=== PATIENT | male | born 1985 | race Caucasian/White ===

== ENCOUNTER 2023-12-19 08:10 | Inpatient (IN) ==
[2023-12-19] MEDS: SODIUM CHLORIDE 0.9% 1,000 ML IV ONE (08:46)
[2023-12-19] MEDS: LORazepam 1 MG/1 ML SYR ED Inj Use IV STA (08:51)
--- OUTSIDE RECORDS SUMMARY | 2023-12-19 08:51 | External Medical Summary | Summary of Care ---
Author Name Unknown Organization [facility] Address [address] [place] [address] Phone [phone] Care Team Providers Care Site Interpreter Name Role Phone Chadd Ulrich MD Primary Care Provider +1- [phone] Reason for Visit * Reason Comments Follow Up Encounter Details Date Type Department Care Team (Late st Contact Info) Description 10/04/2023 12:15 PM EST Office Visit Otolaryngology [facility] [address] [place] [address] Leslie Alcocer MD [address] [place] [address] Nasal polyps* Allergies Active Allergy Reactions Criticality Noted Date Comments Other Allergy (See Comments) 021 pollen documented as of this encounter (statuses as of 10/04/2023) Medications Medication Sig Dispensed Refills Start Date End Date Status Spacer/Aero-Holding Chambers Device Use with inhaler. 1 Each 3 2 Active Albuterol Sulfate HFA 108 (90 Base) MCG/ACT Inhalation Aerosol Solution Inhale 2 Puffs by mouth in the morning and 2 Puffs at noon and 2 Puffs in the evening and 2 Puffs before bedtime. 54 g 1 2 Active Montelukast Sodium 10 MG Oral Tablet (Singulair) Take 1 Tablet by mouth in the morning. 90 Tablet 3 3 Active Fluticasone Furoate-Vilanterol 200-25 MCG/ACT Inhalation Aerosol Powder Breath Activated (BREO ellipta) Inhale 1 Puff by mouth in the morning. 180 Each 3 3 Active Levocetirizine Dihydrochloride 5 MG Oral Tablet Take 1 Tablet by mouth every evening. 90 Tablet 3 3 Active Mometasone Furoate 50 MCG/ACT Nasal Suspension Administer 2 Sprays into each nostril in the morning. 17 g 6 3 Active Budesonide 0.5 MG/2ML Inhalation Suspension (Pulmicort) Inhale 0.5 mg via nebulizer in the morning and 0.5 mg before bedtime. As directed. 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 09/08/2022 07/19/2023 Chronic frontal sinusitis 09/08/2022 Acute sinusitis 04/14/2022 07/27/2023 COPD (chronic obstructive pu lmonary disease) with chronic bronchitis 09/03/2020 09/08/2022 Other chronic sinusitis 11/12/201906/21 Hypertrophy of both inferior nasal turbinates 11/12/19 20 07/27/2023 Deviated nasal septum 11/12/20192022 Anosmia 11/12/2019 07/27/2023 Asthma in remission 11/16/2017 07/27/20 23 Chronic pharyngitis 05/22/2003 11/16/19 18 Chronic lymphadenitis 05/22/20032022 SWELLING, MASS, OR LUMP IN HEAD AND NECK 05/22/2003 11/16/2017 Allergic rhinitis 05/22/2003 07/27/2023 Asthma with severity to be determined 11/16/2017 Overview: ICD-10 update of inactive term Other acne 11/16/2017 Accidental poisoning by [place]-hand tobacco smoke 07/27/2023 Overview: ICD-10 update of inactive term documented as of this encounter (statuses as of 10/04/2023) Immunizations Name Administration Dates Next Due Seasonal Influenza, PF, 6 M & above, IM , (FluLaval or Fluzone) 06/18/2022,07/02/2021 Seasonal Influenza, Quadrivalent, No Preserve, I M 06/13/2020,06/13/2019 Seasonal Influenza, Split, IIV3, With Preserve, Inj 06/19/2016,07/09/2010 TDAP (age 10 and older)(Boostrix) 09/29/2022 TDAP (age 11 and older)(Adacel) 09/05/2008 documented as of this encounter Social History Tobacco Use Types Packs/Day Years Used Date Smoking Tobacco: Former Cigarettes 0.3 10 Smokeless Tobacco: Never Tobacco Cessation:Counseling Given: Not Answered Alcohol Use Standard Drinks/Week Comments Yes 0 (1 standard drink = 0.6 oz pur e alcohol) Weekend-- occasional PHQ-2 Answer Date Recorded PHQ-2 Score -1 04/19/2019 Sex and Gender Information Value Date Recorded Sex Assigned at Not on file Gender Identity Not on file Sexual Orientation Not on file Job Start Date Occupation Industry Not on file Not on file Not on file documented as of this encounter Last Filed Vital Signs Vital Sign Reading Time Taken Comments Blood Pressure - - Pulse - - Temperature 36.9 C (98.5 F) 10/04/2023 12:[address] Respiratory Rate - - Oxygen Saturation - - Inhaled Oxygen Concentration - - Weight 79.8 kg (176 lb) 10/04/2023 12:22 PM EST Height 182.9 cm (6') 10/04/2023 12:22 PM EST Body Mass Index 23.87 10/04/2023 12:22 PM EST documented in this encounter Progress Notes * Leslie Alcocer MD - 10/04/2023 12:40 PM EST PATIENT: Fransico Quinn : 1985 DATE OF SERVICE: 11/23/2022 History of Present Illness The 37 year old male is seen at the request of Chadd Ulrich MD for evaluation of chronic rhinosinusitis with nasal polyps. Here for 2nd opinion regarding recurrent nasal polyps. Patient is status post endoscopic sinus surgery with Dr. Alcocer in November of 2020. This procedure included: .STEREOTACTIC CRANIAL EXTRADURAL NAVIGATION NASAL SINUS ENDOSCOPY WITH ETHMOIDECTOMY TOTAL SINUSOTOMY RADICAL ORTIZ RAMON NASAL SINUS ENDOSCOPY ETHMOIDECTOMY TOTAL WITH FRONTAL SINUS EXPLORATION/TISSUE REMOVAL FRACTURE OF NASAL TURBINATES THERAPEUTIC Patient denies incision of the upper gingiva; therefore, suspect Ortiz Ramon procedure above was listed in error. Patient has a prior history of asthma in childhood. Patient as noted recurrent sinonasal symptoms and has been treated with topical mometasone irrigations. Dr. Alcocer discussed possible Dupixent therapy versus 2nd opinion regarding revision sinus surgery. Patient reports nasal breathing and sense of smell have improved since surgery but notes some left sided obstruction more recently. Initially, presenting back in 2018 with worsening sinus infections and left frontal sinus headaches which had been treated with antibiotics and prednisone. He continues to experience recurrent sinus infections which he feels began with chest congestion followed by a sinus infection a week later. Last sinus infection was in Aug. Had a frontal headache last week. He is currently taking xyzal, Breo, and singulair. Had RAST panel - + class 1 dust mite. 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 There was near complete opacification of the bilateral maxillary sinuses and partial opacification of the left frontal sinus at that time. Patient Active Problem List Diagnosis Code Mild persistent asthma without complication J45.30 Past Medical History: Diagnosis Date ASTHMA W-O STATUS ASTHM Mild persistent asthma without complication 07/27/2023 SECOND-HAND TOBACCO SMOKE Past Surgical History: Procedure Laterality Date CIRCUMCISION W/CLAMP,DORSAL BLOCK, NASAL ENDOSCOPY,TOTAL ETHMOIDECTOMY Bilateral 11/24/2020 NASAL SINUS ENDOSCOPY WITH ETHMOIDECTOMY TOTAL performed by Leslie Alcocer MD at OR [facility] NASAL/SINUS ENDO W/FRONTAL SINUS DILATION Bilateral 11/24/2020 NASAL/SINUS ENDOSCOPY SURGICAL, W/FRONTAL SINUS DILATION performed by Leslie Alcocer MD at OR [facility] NASAL/SINUS ENDOSCOPY TOTAL W/FRONT SINUS EXPLORE/TISSUE REMOVAL Bilateral 11/24/2020 NASAL SINUS ENDOSCOPY ETHMOIDECTOMY TOTAL WITH FRONTAL SINUS EXPLORATION/TISSUE REMOVAL performed by Leslie Alcocer MD at OR [facility] STEREOTACTIC CRANIAL EXTRADURAL NAVIGATION N/A 11/24/2020 STEREOTACTIC CRANIAL EXTRADURAL NAVIGATION performed by Leslie Alcocer MD at OR [facility] THERAPEUTIC FRACTURE OF NOSE Bilateral 11/24/2020 FRACTURE OF NASAL TURBINATES THERAPEUTIC performed by Leslie Alcocer MD at OR [facility] Current Outpatient Medications Medication Sig Dispense Refill Spacer/Aero-Holding Chambers Device Use with inhaler. 1 Each 3 Albuterol Sulfate HFA 108 (90 Base) MCG/ACT Inhalation Aerosol Solution Inhale 2 Puffs by mouth in the morning and 2 Puffs at noon and 2 Puffs in the evening and 2 Puffs before bedtime. 54 g 1 Montelukast Sodium 10 MG Oral Tablet (Singulair) Take 1 Tablet by mouth in the morning. 90 Tablet 3 Fluticasone Furoate-Vilanterol 200-25 MCG/ACT Inhalation Aerosol Powder Breath Activated (BREO ellipta) Inhale 1 Puff by mouth in the morning. 180 Each 3 Levocetirizine Dihydrochloride 5 MG Oral Tablet Take 1 Tablet by mouth every evening. 90 Tablet 3 Mometasone Furoate 50 MCG/ACT Nasal Suspension Administer 2 Sprays into each nostril in the morning. 17 g 6 Budesonide 0.5 MG/2ML Inhalation Suspension (Pulmicort) Inhale 0.5 mg via nebulizer in the morning and 0.5 mg before bedtime. As directed. 120 mL 12 No current facility-administered medications for this visit. Family History Problem Relation Age of Onset No Past Hx None Social History Tobacco Use Smoking status: Former Packs/day: 0.25 Years: 10.00 Additional pack years: 0.00 Total pack years: 2.50 Types: Cigarettes Smokeless tobacco: Never Substance Use Topics Alcohol use: Yes Comment: Weekend-- occasional Vaping/E-Cigarette Use Vaping/E-Cigarette Substances Vaping/E-Cigarette Devices Review of Systems Negative for constitutional, eyes, cardiac, pulmonary, hepatic, renal, digestive, hematologic, epileptic, syncopal, musculo-skeletal, mental health, integumentary, hypertensive, lipid, arthritic, diabetic, thyroid or neurologic disorders (except as listed in the PMH and Problem List). Physical Examination: Vital Signs: Filed Vitals: 10/04/23 1222 Temp: 36.9 C (98.5 F) TempSrc: Tympanic Weight: 79.8 kg (176 lb) Height: 1.829 m (6') General: This is a healthy appearing male who appears his stated age. The patient is alert and oriented x 3 and is appropriately verbally conversant without hoarseness. Head/Face: The face was inspected and no cutaneous masses or lesions were visualized. There was no erythema or edema noted. Facial movement was symmetric without weakness. No skin lesions were detected. Eyes: Extra-ocular muscle function was intact. No nystagmus was observed. Pupils were equal. Nose: Examination of the nose revealed septum is non-obstructing. The turbinates are normal in appearance. No evidence of mucopurulence or nasal polyps appreciated on the right. The previous maxillary antrostomy and ethmoidectomy are patent. On the left, the maxillary antrostomy is patent and free of mucopurulence or polyps. Last visit: Polyps present within the left superior middle meatus and frontal recess area. No obvious mucopurulence seen. Procedure: In order to better assess the nasal chambers and paranasal sinuses, endoscopy was performed. The nose was decongested with topical oxymetazoline 0.05% spray and anesthetized with topical Lidocaine 4%spray. A rigid 30 degree scope was used to examine each side of the nose. See nasal exam for findings noted. Patient tolerated procedure well. No signs of polyps today. Slightly inflamed but overall looks great. Impression and Plan: ICD-10-CM 1. Nasal polyps J33.9 Patient is doing great on his current regimen. He knows to call if he wants to consider Dupixent. P.r.n. return Approximately 25 minutes was spent with the patient reviewing his previous sinonasal history and current symptoms, performance of fiberoptic nasal exam, and discussion of treatment options. His questions were answered to his satisfaction. Leslie Alcocer MD [facility] - [facility] [place], [place] 10/04/2023 12:43 PM documented in this encounter Nursing Notes * Kayli Moreau LPN - 10/04/2023 12:23 PM EST Patient presents today for follow up. States he uses budesonide in the morning with saline irrigation. Will then use mometasone before work. Will use flonase if needed due to congesion but is very seldom. He was doing good until July. Would like to get update of growths of polyps. documented in this encounter Plan of Treatment Upcoming Encounters Date Type Department Care Team (Late st Contact Info) Description 10/25/2023 12:30 PM EST Office Visit Orthopaedics [facility] [address] [place] [address] Steffanie Canchola MD [address] [place] [address] 01/18/2024 11:40 AM EDT Office Visit Family Practice [facility] [address] [place] [address] Lorena Beckett CRNP [address] [place] [address] Health Maintenance Due Date Last Done Comments Hepatitis B (1 of 3 - 3-dose series) 1985 Pneumococcal Vaccine: Pediatrics (0 to 5 Years) and At-Risk Patients (6 to 64 Years) (1 - PCV) 1991 HIV Screening 2000 Hepatitis C Screening 2003 Depression Screening 04/19/2020 04/19/2019 COVID-19 Vaccine (2 - 2022- season) 2023 12/12/2020 Influenza Vaccine (FLU shot) (#1) 2023 06/18/2022, 07/02/2021, 06/13/2020, Additional history exists DTaP,Tdap,and Td Vaccines (7 - Td or Tdap) 09/29/2032 09/29/2022, 09/05/2008, 05/31/1988, Additional history exists GARDASIL-HPV IMMUNIZATION SERIES Aged Out No longer eligible based on patient's age to complete this topic MENINGOCOCCAL (MENACTRA/MENVEO) Aged Out No longer eligible based on patient's age to complete this topic documented as of this encounter Medical Devices Implanted Type Area Refractory Technician Device Identifier Shelf Expiration Date Model / Serial / Lot Propell Sinus Implant Implanted:Qty: 2 on 11/24/2020 by Leslie Alcocer MD at OR [facility] Nose INTERSECT ENT 07/22/2022 [id number] / / [id number] documented as of this encounter Visit Diagnoses Diagnosis Nasal polyps- Primary Unspecified nasal polyp documented in this encounter Care Teams Site Interpreter Relationship Specialty Start Date End Date Chadd Ulrich MD [address] [place] [address] PCP - General 11/27/02 documented as of this encounter
--- OUTSIDE RECORDS SUMMARY | 2023-12-19 08:51 | External Medical Summary | Summary of Care ---
Author Name Unknown Organization [facility] Address [address] [facility] [place] [address] Phone [phone] Care Team Providers Care Director Of Annual Giving Name Role Phone Chadd Ulrich MD Primary Care Provider +1- [phone] Encounter Details Date Type Department Care Team (Late st Contact Info) Description 09/26/2023 Patient Reported Data Patient Survey Ortho [facility] Allergies Active Allergy Reactions Criticality Noted Date Comments Other Allergy (See Comments) 021 pollen documented as of this encounter (statuses as of 09/26/2023) Medications Medication Sig Dispensed Refills Start Date End Date Status Spacer/Aero-Holding Chambers Device Use with inhaler. 1 Each 3 09/08/2022 Active Albuterol Sulfate HFA 108 (90 Base) MCG/ACT Inhalation Aerosol Solution Inhale 2 Puffs by mouth in the morning and 2 Puffs at noon and 2 Puffs in the evening and 2 Puffs before bedtime. 54 g 1 09/08/2022 Active Montelukast Sodium 10 MG Oral Tablet (Singulair) Take 1 Tablet by mouth in the morning. 90 Tablet 3 01/11/2023 Active Fluticasone Furoate-Vilanterol 200-25 MCG/ACT Inhalation Aerosol Powder Breath Activated (BREO ellipta) Inhale 1 Puff by mouth in the morning. 180 Each 3 01/11/2023 Active Levocetirizine Dihydrochloride 5 MG Oral Tablet Take 1 Tablet by mouth every evening. 90 Tablet 3 01/11/2023 Active Mometasone Furoate 50 MCG/ACT Nasal Suspension Administer 2 Sprays into each nostril in the morning. 17 g 6 07/29/2023 Active Budesonide 0.5 MG/2ML Inhalation Suspension (Pulmicort) Inhale 0.5 mg via nebulizer in the morning and 0.5 mg before bedtime. As directed. 120 mL 12 07/29/2023 Active metroNIDAZOLE 1 % External Gel (Metrogel) Apply topically to affected area 2 times a day. To affected area for 8 weeks 60 g 1 07/29/2023 Active methylPREDNISolone 4 MG Oral Tablet Therapy Pack (Medrol Dosepack) follow package directions 21 Tablet 0 08/05/2023 Active Additional Information Patient not taking.Reported on 09/26/2023 documented as of this encounter (statuses as of 09/26/2023) Active Problems Problem Noted Date Diagnosed Date Mild persistent asthma without complication 04/2023 documented as of this encounter (statuses as of 09/26/2023) Resolved Problems Problem Noted Date Diagnosed Date [...] as of this encounter (statuses as of 09/26/2023) Immunizations Name Administration Dates Next Due Seasonal [...] Former Cigarettes 0.3 10 Smokeless Tobacco: Never Alcohol Use Standard Drinks/Week Comments Yes 0 [...] on file documented as of this encounter Plan of Treatment Upcoming Encounters Date Type Department Care Team (Late st Contact Info) Description 09/27/2023 3:30 PM EST Office Visit Orthopaedics [facility] [address] [address] Steffanie Canchola MD [address] [place] [address] 10/04/2023 12:15 PM EST Office Visit Otolaryngology [facility] [address] [address] Leslie Alcocer MD [address] [place] [address] 01/18/2024 11:40 AM EDT Office Visit Family Practice [facility] [address] [place] [address] Sujit LorenaFINN Chowdhury [address] [place] [address] Health Maintenance Due Date Last Done Comments Hepatitis B (1 of 3 - 3-dose series) 1985 Pneumococcal Vaccine: Pediatrics (0 to 5 Years) and At-Risk Patients (6 to 64 Years) (1 - PCV) 1991 HIV Screening 2000 Hepatitis C Screening 2003 Depression Screening 04/19/2020 04/19/2019 COVID-19 Vaccine (2 - season) 2023 12/12/2020 Influenza Vaccine (FLU shot) [...] this encounter Medical Devices Implanted Type Area Sales Broker Device Identifier Shelf Expiration Date Model / Serial / Lot Propell Sinus Implant Implanted:Qty: 2 on 11/24/2020 by Leslie Alcocer MD at OR [facility] Nose INTERSECT ENT 07/22/2022 [id number] / / [id number] documented as of this encounter Care Teams Director Of Annual Giving Relationship Specialty Start Date End Date Chadd Ulrich MD [address] [facility] [place] [address] PCP - General 11/27/02 documented as of this encounter
--- OUTSIDE RECORDS SUMMARY | 2023-12-19 08:51 | External Medical Summary | Summary of Care ---
Author Name Unknown Organization [facility] Address [address] [place] [address] Phone [phone] Care Team Providers Care Cryptologic Support Specialist Name Role Phone Chadd Ulrich MD Primary Care Provider +1- [phone] Encounter Details Date Type Department Care Team [...] 09/27/2023 3:30 PM EST Office Visit Orthopaedics [facility] [address] [address] Steffanie Canchola MD [address] [place] [address] 10/04/2023 12:15 PM EST Office Visit Otolaryngology [facility] [address] [address] Leslie Alcocer MD [address] [place] [address] 01/18/2024 11:40 AM EDT Office Visit Family Practice [facility] [address] [place] [address] Sujit LorenaFINN Chowdhury [address] [place] [address] Health Maintenance Due Date Last Done Comments [...] this encounter Medical Devices Implanted Type Area Electronic Warfare Technical Device Identifier Shelf Expiration Date Model / Serial / Lot Propell Sinus Implant Implanted:Qty: 2 on 11/24/2020 by Leslie Alcocer MD at OR [facility] Nose INTERSECT ENT 07/22/2022 [id number] / / [id number] documented as of this encounter Care Teams Cryptologic Support Specialist Relationship Specialty Start Date End Date Chadd Ulrich MD [address] [facility] [place] [address] PCP - General 11/27/02 documented as of this encounter
--- OUTSIDE RECORDS SUMMARY | 2023-12-19 08:51 | External Medical Summary | Summary of Care ---
Author Name Unknown Organization [facility] Address [address] [place] [address] Phone [phone] Care Team Providers Care Agent Telegrapher Name Role Phone Chadd Ulrich MD Primary Care Provider +1- [phone] Reason for Visit * Reason Comments NEW PATIENT Left ring finger * Evaluate & Treat - Unlimited Visits (Within 3 days (urgent)) - Authorized Specialty Diagnoses / Procedures Referred By Bryson t Referred To Contact Orthopaedic Surgery / Orthopedics Diagnoses Injury of finger of left hand, initial encounter Fina March CRNP [address] [place] [address] Referral ID Status Reason Start Date Expiration Date Visits Requested Visits Authorized [id number] Authorized Specialty Services Required 09/26/[phone] Encounter Details Date Type Department Care Team (Late st Contact Info) Description 09/27/2023 3:30 PM EST Office Visit Orthopaedics [facility] [address] [facility] [place] [address] Steffanie Canchola MD [address] [place] [address] Closed fracture of tuft of distal phalanx of finger* Allergies Active Allergy Reactions Criticality Noted Date Comments Other Allergy (See Comments) 021 pollen documented as of this encounter (statuses as of 09/27/2023) Medications Medication Sig Dispensed Refills Start Date [...] as of this encounter (statuses as of 09/27/2023) Active Problems Problem Noted Date Diagnosed Date Mild persistent asthma without complication 04/2023 documented as of this encounter (statuses as of 09/27/2023) Resolved Problems Problem Noted Date Diagnosed Date Resolved Date Perioral dermatitis 07/19/2023 07/27/20 Mild persistent asthma with exacerbation 09/08/2022 07/27/2023 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 09/08/2022 07/19/2023 Chronic frontal sinusitis 09/08/2022 Acute sinusitis 04/14/2022 07/27/2023 COPD (chronic obstructive pu lmonary disease) with chronic bronchitis 09/03/2020 09/08/2022 Other chronic sinusitis 11/12/2019 10/09/2022 Hypertrophy of both inferior nasal turbinates 11/12/19 [...] as of this encounter (statuses as of 09/27/2023) Immunizations Name Administration Dates Next Due Seasonal [...] on file documented as of this encounter Progress Notes * Steffanie Canchola MD - 09/27/2023 3:30 PM EST History: Chief Complaint Patient presents with NEW PATIENT Left ring finger Nursing Notes: Jez Dana, MED ASSIST 09/27/23 1407 Signed Pt presents today for left ring finger injury, DOI 09/25/23. Pt states he was hooking up a snow plow and the tip of his finger got smashed. Pt tried going to urgent care, but could not get in and wasseen at [facility] where they did Xrays. Last night his finger was getting discolored, so he put ice on it and was bending his fingers. Patient is a 37 year old right handed male ho presents for consultation to [facility] for left hand/finger pain. Consult requested by FINN Grier. Fransico Maria De Jesus Quinn is here unaccompanied Patient reports that left 4th finger pain started 2 days ago. Snow plow fell onto the tip of his finger when he was trying to attach and release it. He went to urgent care on the day of injury but the wait was too long and he was told to go to the ER. He was unable to go to the ER due to commitments with his kids, so was seen in the family doctor's office the next day. This office note was reviewed. An x-ray was ordered that confirmed a fracture and he was provided an urgent referral to orthopedics. Last tetanus was September 2022. Review of systems: All others negative except those noted above in HPI. Past Medical History: Diagnosis Date ASTHMA W-O STATUS ASTHM Mild persistent asthma without complication 07/27/2023 SECOND-HAND TOBACCO SMOKE Family History Problem Relation Age of Onset No Past Hx None Social History Socioeconomic History Marital status: Spouse name: Not on file Number of children: Not on file Years of education: Not on file Highest education level: Not on file Occupational History Not on file Tobacco Use Smoking status: Former Packs/day: 0.25 Years: 10.00 Additional pack years: 0.00 Total pack years: 2.50 Types: Cigarettes Smokeless tobacco: Never Substance and Sexual Activity Alcohol use: Yes Comment: Weekend-- occasional Drug use: No Sexual activity: Not on file Other Topics Concern Service Not Asked Blood Transfusions Not Asked Caffeine Concern Not Asked Occupational Exposure Not Asked Hobby Hazards Not Asked Sleep Concern Not Asked Stress Concern Not Asked Weight Concern Not Asked Special Diet Not Asked Back Care Not Asked Exercise Not Asked Bike Helmet Not Asked Seat Belt Yes Self-Exams Not Asked Social History Narrative 10th grade, doing well Planning on college Social Determinants of Health Financial Resource Strain: Not on file Food Insecurity: Not on file Transportation Needs: Not on file Physical Activity: Not on file Stress: Not on file Social Connections: Not on file Intimate Partner Violence: Not on file Housing Stability: Not on file Past Surgical History: Procedure Laterality Date CIRCUMCISION W/CLAMP,DORSAL BLOCK, NASAL ENDOSCOPY,TOTAL ETHMOIDECTOMY Bilateral 11/24/2020 NASAL SINUS ENDOSCOPY WITH ETHMOIDECTOMY TOTAL performed by Leslie Alcocer MD at OR [facility] NASAL/SINUS ENDO W/FRONTAL SINUS DILATION Bilateral 11/24/2020 NASAL/SINUS ENDOSCOPY SURGICAL, W/FRONTAL SINUS DILATION performed by Leslie Alcocer MD at OR [facility] NASAL/SINUS ENDOSCOPY TOTAL W/FRONT SINUS EXPLORE/TISSUE REMOVAL Bilateral 11/24/2020 NASAL SINUS ENDOSCOPY ETHMOIDECTOMY TOTAL WITH FRONTAL SINUS EXPLORATION/TISSUE REMOVAL performed by Leslie Alcocer MD at OR [facility] STEREOTACTIC CRANIAL EXTRADURAL NAVIGATION N/A 11/24/2020 STEREOTACTIC CRANIAL EXTRADURAL NAVIGATION performed by Leslie Alcocer MD at OR [facility] THERAPEUTIC FRACTURE OF NOSE Bilateral 11/24/2020 FRACTURE OF NASAL TURBINATES THERAPEUTIC performed by Leslie Alcocer MD at OR [facility] Physical Exam There were no vitals filed for this visit. Estimated body mass index is 23.87 kg/m as calculated from the following: Height as of 07/27/23: 1.829 m (6'). Weight as of 09/26/23: 79.8 kg (176 lb). General: generally well-nourished and in no acute distress HEENT: normocephalic, atraumatic, sclera anicteric. Psych: mood and affect normal , cooperative Card: Peripheral pulses: normal in affected extremity (s) Resp: equal chest rise, non-tachypneic, non-labored breathing Skin: no rash, normal Neuro: Coordination: normal; Sensation: normal on affected extremity (s) MSK: Hand Exam, Bilateral Inspection: Significant bruising to 4th finger tip and D IP joint. No periungual hematoma Palpation: Exquisitely tender over the 4th fingertip Range of Motion: Limited range of motion to flexion of the 4th finger DIP, but able to demonstrate active flexion. Full extension. Rotation, angulation, or crossover: yes Radiology (I have personally reviewed the following films): EXAM LT XR FINGERS 2 OR MORE VIEWS - 09/26/2023 3:38 pm HISTORY left hand distal 4th digit crushing injury yesterday COMPARISON None TECHNIQUE Three views FINDINGS Nondisplaced 4th distal phalanx tuft fracture along the ulnar aspect. Normal alignment. Joint spaces are preserved. Mild soft tissue swelling distally. IMPRESSION IMPRESSION Nondisplaced 4th distal phalanx tuft fracture. Assessment and Plan: ICD-10-CM 1. Closed fracture of tuft of distal phalanx of finger S62.639A Pleasant 37-year-old male presents today for evaluation and management of 4th distal phalanx tuft fracture sustained 2 days ago. He does have a slight abrasion above the DIP joint but no periungual hematoma. Tetanus up-to-date. Discussed tuft fractures and anticipate healing time of 4-6 weeks, immo bilization for 3-4 weeks or until the finger sensitive to impact. He was provided a Stax splint as well as a finger cage splint today. I will have him return to the office for re-evaluation in 2-3 weeks. Only need to repeat x-rays forpersistent symptoms. Return to clinic sooner if any evidence of infection including redness, warmth, drainage. Steffanie Canchola MD Primary Care Sports Medicine Orthopaedics [address] [address] documented in this encounter Nursing Notes * Dana Story, JOAQUÍN ASSIST - 09/27/2023 2:04 PM EST Pt presents today for left ring finger injury, DOI 09/25/23. Pt states he was hooking up a snow plow and the tip of his finger got smashed. Pt tried going to urgent care, but could not get in and wasseen at [facility] where they did Xrays. Last night his finger was getting discolored, so he put ice on it and was bending his fingers. documented in this encounter Plan of Treatment Upcoming Encounters Date Type Department Care Team (Late st Contact Info) Description 10/04/2023 12:15 PM EST Office Visit Otolaryngology [facility] [address] [place] [address] Leslie Alcocer MD [address] [place] [address] 10/25/2023 12:30 PM EST Office Visit Orthopaedics [facility] [address] [place] [address] Steffanie Canchola MD [address] [place] [address] 01/18/2024 11:40 AM EDT Office Visit [facility] [address] [place] [address] Lorena Beckett CRNP [address] [place] [address] Scheduled Referrals Name Type Priority Associated Diagnoses Order Schedule ORTHOPAEDICS REFERRAL OP Referral Within 3 days (urgent) Injury of finger of left hand, initial encounter Ordered: 09/26/2023 Health Maintenance Due Date Last Done Comments [...] this encounter Medical Devices Implanted Type Area Returned Materials Inspector Device Identifier Shelf Expiration Date Model / Serial / Lot Propell Sinus Implant Implanted:Qty: 2 on 11/24/2020 by Leslie Alcocer MD at OR [facility] Nose [facility] 07/22/2022 [id number] / / [id number] documented as of this encounter Visit Diagnoses Diagnosis Closed fracture of tuft of distal phalanx of finger- Primary Closed fracture of distal phalanx or phalanges of hand documented in this encounter Care Teams Agent Telegrapher Relationship Specialty Start Date End Date Chadd Ulrich MD [address] [place] [address] PCP - General 11/27/02 documented as of this encounter
--- OUTSIDE RECORDS SUMMARY | 2023-12-19 08:51 | External Medical Summary | Summary of Care ---
Author Name Unknown Organization [facility] Address [address] [place] [facility] [place] [address] Phone [phone] Care Team Providers Care Switchboard Manager Name Role Phone Chadd Ulrich MD Primary Care Provider +1- [phone] Encounter Details Date Type Department Care Team [...] 09/27/2023 3:30 PM EST Office Visit Orthopaedics [facility] [address] [place] [address] Steffanie Canchola MD [address] [place] [address] 10/04/2023 12:15 PM EST Office Visit Otolaryngology [facility] [address] [place] [address] Leslie Alcocer MD [address] [place] [address] 01/18/2024 11:40 AM EDT Office Visit Family Practice [facility] [address] [place] [address] Sujit LorenaFINN Chowdhury [address] [place] [address] Health Maintenance Due Date Last Done Comments [...] this encounter Medical Devices Implanted Type Area Patient Safety Sitter Device Identifier Shelf Expiration Date Model / Serial / Lot Propell Sinus Implant Implanted:Qty: 2 on 11/24/2020 by Leslie Alcocer MD at OR [facility] Nose INTERSECT ENT 07/22/2022 [id number] / / [id number] documented as of this encounter Care Teams Switchboard Manager Relationship Specialty Start Date End Date Chadd Ulrich MD [address] [facility] [place] [address] PCP - General 11/27/02 documented as of this encounter
--- OUTSIDE RECORDS SUMMARY | 2023-12-19 08:51 | External Medical Summary | Summary of Care ---
Author Name Unknown Organization [facility] Address [address] [place] [facility] [place] [place] [address] Phone [phone] Care Team Providers Care Research Associate Molecular Biology Name Role Phone Chadd Ulrich MD Primary Care Provider +1- [phone] Encounter Details Date Type Department Care Team (Late st Contact Info) Description 09/27/2023 Telephone Family Practice [facility] [address] [place] [address] Fina March CRNP [address] [place] [address] Allergies Active Allergy Reactions Criticality Noted Date [...] on file documented as of this encounter Miscellaneous Notes * Telephone Encounter - Sweta Chandler LPN - 09/27/2023 10:49 AM EST Called pt-- No answer, LM to return call to clinic or refer to my g message. * Telephone Encounter - Fina March CRNP - 09/27/2023 10:17 AM EST Please call Xray shows fracture Please confirm he has ortho visit. He can wait for ortho visit if today and he has no worsening pain or loss of sensation in finger but if worsening would advise ER documented in this encounter Plan of Treatment Upcoming Encounters Date Type Department Care Team (Late st Contact Info) Description 09/27/2023 3:30 PM EST Office Visit Orthopaedics [facility] [address] [place] [address] Steffanie Canchola MD [address] [place] [address] 10/04/2023 12:15 PM EST Office Visit Otolaryngology [facility] [address] [place] [address] Leslie Alcocer MD [address] [place] [address] 01/18/2024 11:40 AM EDT Office Visit Family Practice [facility] [address] [place] [address] Lorena Beckett CRNP [address] [place] [address] Health Maintenance Due Date Last Done Comments [...] this encounter Medical Devices Implanted Type Area Shoulder Sawyer Device Identifier Shelf Expiration Date Model / Serial / Lot Propell Sinus Implant Implanted:Qty: 2 on 11/24/2020 by Leslie Alcocer MD at OR [facility] Nose INTERSECT ENT 07/22/2022 [id number] / / [id number] documented as of this encounter Care Teams Research Associate Molecular Biology Relationship Specialty Start Date End Date Chadd Ulrich MD [address] [place], [place] [id number] PCP - General 11/27/02 documented as of this encounter
--- OUTSIDE RECORDS SUMMARY | 2023-12-19 08:51 | External Medical Summary | Summary of Care ---
Author Name Unknown Organization [facility] Address [address] [place] [address] Phone [phone] Care Team Providers Care Slug Press Operator Name Role Phone Chadd Ulrich MD Primary Care Provider +1- [phone] Encounter Details Date Type Department Care Team (Late st Contact Info) Description 11/25/2023 Refill Otolaryngology [facility] [address] [place] [address] Leslie Alcocer MD [address] [place] [address] Allergies Active Allergy Reactions Criticality Noted Date Comments Other Allergy (See Comments) 021 pollen documented as of this encounter (statuses as of 11/25/2023) Medications Medication Sig Dispensed Refills Start Date [...] every evening. 90 Tablet 3 01/11/2023 Active Budesonide 0.5 MG/2ML Inhalation Suspension (Pulmicort) Inhale 0.5 mg via nebulizer in the morning and 0.5 mg before bedtime. As directed. 120 mL 12 07/29/2023 Active Mometasone Furoate 50 MCG/ACT Nasal Suspension Administer 2 Sprays into each nostril in the morning. 51 g 4 11/25/2023 Active Mometasone Furoate 50 MCG/ACT Nasal Suspension Administer 2 Sprays into each nostril in the morning. 17 g 6 07/29/2023 Discontinue d(Refill) documented as of this encounter (statuses as of 11/25/2023) Active Problems Problem Noted Date Diagnosed Date Mild persistent asthma without complication 04/2023 documented as of this encounter (statuses as of 11/25/2023) Resolved Problems Problem Noted Date Diagnosed Date [...] as of this encounter (statuses as of 11/25/2023) Immunizations Name Administration Dates Next Due Seasonal [...] encounter Miscellaneous Notes * Telephone Encounter - Leslie Alcocer MD - 11/25/2023 9:50 AM EST Signed Prescriptions: Disp Refills Mometasone Furoate 50 MCG/ACT Nasal Suspen*51 g 4 Sig: Administer 2 Sprays into each nostril in the morning.Authorizing Provider: LESLIE ALCOCER * Telephone Encounter - Kathy Avendaño LPN - 11/25/2023 9:40 AM EST Received fax from [facility] for 90 day rx request for Mometasone Furoate. Pended. documented in this encounter Plan of Treatment Upcoming Encounters Date Type Department Care Team (Late st Contact Info) Description 01/18/2024 11:40 AM EDT Office Visit [facility] [address] [place] [address] Lorena Beckett CRNP [address] [place] [address] Health Maintenance Due Date Last Done Comments Pneumococcal Vaccine: Pediatrics (0 to 5 Years) and At-Risk Patients (6 to 64 Years) (1 of 2 - PCV) 1991 HIV Screening 2000 Hepatitis C Screening 2003 Hepatitis B (1 of 3 - 19+ 3-dose series) 2004 Depression Screening 04/19/2020 04/19/2019 COVID-19 Vaccine (2 - 2022-24 season) 2023 12/12/2020 Influenza Vaccine (FLU shot) [...] this encounter Medical Devices Implanted Type Area Transfer Car Operator Device Identifier Shelf Expiration Date Model / Serial / Lot Propell Sinus Implant Implanted:Qty: 2 on 11/24/2020 by Leslie Alcocer MD at OR [facility] Nose INTERSECT ENT 07/22/2022 [id number] / / [id number] documented as of this encounter Care Teams Slug Press Operator Relationship Specialty Start Date End Date Chadd Ulrich MD [address] [facility] [facility] [address] PCP - General 11/27/02 documented as of this encounter
[2023-12-19] MEDS: ONDANSETRON INJ 2 MG/ML 2 ML VIAL IV STA (08:52)
--- OUTSIDE RECORDS SUMMARY | 2023-12-19 08:52 | External Medical Summary | Summary of Care ---
Author Name Unknown Organization [facility] Address [address] [place] [address] Phone [phone] Care Team Providers Care Instrument Adjuster Name Role Phone Chadd Ulrich MD Primary Care Provider +1- [phone] Encounter Details Date Type Department Care Team [...] 09/27/2023 3:30 PM EST Office Visit Orthopaedics [facility] [address] [place] [address] [address] Steffanie Canchola MD [address] [place] [address] 10/04/2023 12:15 PM EST Office Visit Otolaryngology [facility] [address] [place] [address] Leslie Alcocer MD [address] [place] [address] 01/18/2024 11:40 AM EDT Office Visit Family Practice [facility] [address] [place] [address] Sujit LorenaFINN Chowdhury [address] [place] [address] Health Maintenance Due Date Last Done Comments [...] this encounter Medical Devices Implanted Type Area Scrap Dealer Device Identifier Shelf Expiration Date Model / Serial / Lot Propell Sinus Implant Implanted:Qty: 2 on 11/24/2020 by Leslie Alcocer MD at OR [facility] Nose INTERSECT ENT 07/22/2022 [id number] / / [id number] documented as of this encounter Care Teams Instrument Adjuster Relationship Specialty Start Date End Date Chadd Ulrich MD [address] [facility] [place] [address] PCP - General 11/27/02 documented as of this encounter
--- OUTSIDE RECORDS SUMMARY | 2023-12-19 08:52 | External Medical Summary | Summary of Care ---
Author Name Unknown Organization [facility] Address [address] [facility] [place] [address] Phone [phone] Care Team Providers Care Production Control Specialist Name Role Phone Chadd Ulrich MD Primary Care Provider +1- [phone] Encounter Details Date Type Department Care Team [...] 09/27/2023 3:30 PM EST Office Visit Orthopaedics [facility] [address] [place] [address] Steffanie Canchola MD [address] [place] [address] 10/04/2023 12:15 PM EST Office Visit Otolaryngology [facility] [address] [place] [address] Leslie Alcocer MD [address] [place] [address] 01/18/2024 11:40 AM EDT Office Visit Family Practice [facility] [address] [place] [address] Sujit LorenaFINN Chowdhury [address] [place] [address] Health Maintenance Due Date Last Done Comments [...] this encounter Medical Devices Implanted Type Area Proposal Analyst Device Identifier Shelf Expiration Date Model / Serial / Lot Propell Sinus Implant Implanted:Qty: 2 on 11/24/2020 by Leslie Alcocer MD at OR [facility] Nose INTERSECT ENT 07/22/2022 [id number] / / [id number] documented as of this encounter Care Teams Production Control Specialist Relationship Specialty Start Date End Date Chadd Ulrich MD [address] [facility] [place] [address] PCP - General 11/27/02 documented as of this encounter
--- OUTSIDE RECORDS SUMMARY | 2023-12-19 08:52 | External Medical Summary | Summary of Care ---
Author Name Unknown Organization [facility] Address [address] [place] [facility] [place] [address] Phone [phone] Care Team Providers Care Level Vial Curvature Gauger Name Role Phone Chadd Ulrich MD Primary Care Provider +1- [phone] Encounter Details Date Type Department Care Team [...] 09/27/2023 3:30 PM EST Office Visit Orthopaedics [facility] [address] [place] [address] Steffanie Canchola MD [address] [place] [address] 10/04/2023 12:15 PM EST Office Visit Otolaryngology [facility] [address] [place] [address] [address] Leslie Alcocer MD [address] [place] [address] 01/18/2024 11:40 AM EDT Office Visit Family Practice [facility] [address] [place] [address] Sujit LorenaFINN Chowdhury [address] [place] [address] Health Maintenance Due Date Last Done Comments [...] this encounter Medical Devices Implanted Type Area Billboard Installer Device Identifier Shelf Expiration Date Model / Serial / Lot Propell Sinus Implant Implanted:Qty: 2 on 11/24/2020 by Leslie Alcocer MD at OR [facility] Nose INTERSECT ENT 07/22/2022 [id number] / / [id number] documented as of this encounter Care Teams Level Vial Curvature Gauger Relationship Specialty Start Date End Date Chadd Ulrich MD [address] [facility] [place] [address] PCP - General 11/27/02 documented as of this encounter
--- OUTSIDE RECORDS SUMMARY | 2023-12-19 08:52 | External Medical Summary | Summary of Care ---
Author Name Unknown Organization [facility] Address [address] [place] [address] Phone [phone] Care Team Providers Care Traffic Court Magistrate Name Role Phone Chadd Ulrich MD Primary Care Provider +1- [phone] Reason for Visit * Reason Onset Date Comments Advice 07/29/2023 Encounter Details Date Type Department Care Team (Late st Contact Info) Description 07/29/2023 Telephone Family Practice [facility] [address] [place] [address] Lorena Beckett CRNP [address] [facility] [address] Advice Allergies Active Allergy Reactions Criticality Noted Date Comments Other Allergy (See Comments) 021 pollen documented as of this encounter (statuses as of 07/29/2023) Medications Medication Sig Dispensed Refills Start Date End Date Status Spacer/Aero-Holding Chambers Device Use with inhaler. 1 Each 3 2 Active Albuterol Sulfate HFA 108 (90 Base) MCG/ACT Inhalation Aerosol Solution Inhale 2 Puffs by mouth in the morning and 2 Puffs at noon and 2 Puffs in the evening and 2 Puffs before bedtime. 54 g 1 2 Active Mometasone Furoate 50 MCG/ACT Nasal Suspension Administer 2 Sprays into each nostril in the morning. 17 g 6 3 Active Montelukast Sodium 10 MG Oral Tablet (Singulair) Take 1 Tablet by mouth in the morning. 90 Tablet 3 3 Active Fluticasone Furoate-Vilanterol 200-25 MCG/ACT Inhalation Aerosol Powder Breath Activated (BREO ellipta) Inhale 1 Puff by mouth in the morning. 180 Each 3 3 Active Levocetirizine Dihydrochloride 5 MG Oral Tablet Take 1 Tablet by mouth every evening. 90 Tablet 3 3 Active Budesonide 0.5 MG/2ML Inhalation Suspension (Pulmicort) Inhale 0.5 mg via nebulizer in the morning and 0.5 mg before bedtime. As directed. 120 mL 12 3 Active metroNIDAZOLE 1 % External Gel (Metrogel) Apply topically to affected area 2 times a day. To affected area for 8 weeks 60 g 1 3 09/27/19 24 Active Doxycycline Hyclate 100 MG Oral Capsule Take 1 Capsule by mouth in the morning and 1 Capsule before bedtime. Do all this for 14 days. 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 09/08/2022 07/19/2023 Chronic frontal sinusitis 09/08/2022 Acute sinusitis 04/14/2022 07/27/2023 COPD (chronic obstructive pu lmonary disease) with chronic bronchitis 09/03/2020 09/08/2022 Other chronic sinusitis 11/12/201906/21 Hypertrophy of both inferior nasal turbinates 11/12/1907/27/2023 Deviated nasal septum 11/12/20192022 Anosmia 11/12/2019 07/27/2023 [...] as of this encounter (statuses as of 07/29/2023) Immunizations Name Administration Dates Next Due SEASONAL INFLUENZA, PF, 6 M & Above, IM , (FLULAVAL or FLUZONE) 06/18/2022,07/02/2021 Seasonal Influenza, Quadrivalent, No Preserve, I [...] encounter Miscellaneous Notes * Telephone Encounter - Lorena Beckett CRNP - 07/29/2023 9:47 AM EST Spoke with patient- Akash Crane yesterday. All labs normal drawn yesterday Unclear if doxycycline is causing urinary frequency. Denies constipation. - recommend stop doxycycline. Started metrogel for perioral dermatitis. Bishnu, MSN, FINN [facility] documented in this encounter Plan of Treatment Upcoming Encounters Date Type Department Care Team (Late st Contact Info) Description 10/04/2023 12:15 PM EST Office Visit Otolaryngology [facility] [address] [place] [address] Leslie Alcocer MD [address] [place] [address] 01/18/2024 11:40 AM EDT Office Visit Family Practice [facility] [address] [place] [address] Lorena Beckett CRNP [address] [place] [address] Health Maintenance Due Date Last Done Comments [...] this encounter Medical Devices Implanted Type Area Production Engine Repairer Device Identifier Shelf Expiration Date Model / Serial / Lot Propell Sinus Implant Implanted:Qty: 2 on 11/24/2020 by Leslie Alcocer MD at OR [facility] Nose INTERSECT ENT 07/22/2022 [id number] / / [id number] documented as of this encounter Care Teams Traffic Court Magistrate Relationship Specialty Start Date End Date Chadd Ulrich MD [address] [facility] [place] [id number] PCP - General 11/27/02 documented as of this encounter
--- OUTSIDE RECORDS SUMMARY | 2023-12-19 08:52 | External Medical Summary ---
Author Name Unknown Address Unknown Organization K01:LABORATORY [facility] [place] - [address] [place] [address] Laboratory Report Ordering Provider Test Date Status STEVE HAYNES 07/27/2023 15:28:34 Final Observation Date Value Abnormality Reference (Units ) Status BUN 07/27/2023 15:28:34 13 6-20 (mg/dL) Final Creatinine 07/27/2023 15:28:34 0.9 0.6-1.2 (mg/dL) Final Glomerular filtration rate/1.73 sq M.predicted [Volume Rate/Area] in Serum, Plasma or Blood by Creatinine-based formula (CKD-EPI) 07/27/2023 15:28:34 >90 >=60 (mL/min) Final eGFR is calculated based on the CKD-EPI 2020 equation SODIUM 07/27/2023 15:28:34 141 135-146 (m mol/L) Final Potassium 07/27/2023 15:28:34 4.2 3.5-5.1 (m mol/L) Final Cl 07/27/2023 15:28:34 101 98-107 (mm ol/L) Final CO2 07/27/2023 15:28:34 30 22-32 (mmo l/L) Final Anion gap 07/27/2023 15:28:34 10 7-15 (mmol /L) Final Glucose 07/27/2023 15:28:34 94 70-120 (mg /dL) Final Calcium 07/27/2023 15:28:34 9.7 8.4-10.2 ( mg/dL) Final Performing Location LABORATORY [facility] [place] - [address] [place] [address]
--- OUTSIDE RECORDS SUMMARY | 2023-12-19 08:52 | External Medical Summary | Summary of Care ---
Author Name Unknown Organization [facility] Address [address] [facility] [place] [address] Phone [phone] Care Team Providers Care Nursing Student Name Role Phone Chadd Ulrich MD Primary Care Provider +1- [phone] Encounter Details Date Type Department Care Team [...] 09/27/2023 3:30 PM EST Office Visit Orthopaedics [facility] [address] [place] [address] Steffanie Canchola MD [address] [address] 10/04/2023 12:15 PM EST Office Visit Otolaryngology [facility] [address] [address] Leslie Alcocer MD [address] [place] [address] 01/18/2024 11:40 AM EDT Office Visit Family Practice [facility] [address] [place] [address] Sujit LorenaFINN Chowdhury [address] [place] [address] Health Maintenance Due Date Last Done Comments [...] this encounter Medical Devices Implanted Type Area Pediatric Physician Device Identifier Shelf Expiration Date Model / Serial / Lot Propell Sinus Implant Implanted:Qty: 2 on 11/24/2020 by Leslie Alcocer MD at OR [facility] Nose INTERSECT ENT 07/22/2022 [id number] / / [id number] documented as of this encounter Care Teams Nursing Student Relationship Specialty Start Date End Date Chadd Ulrich MD [address] [facility] [place] [id number] PCP - General 11/27/02 documented as of this encounter
--- OUTSIDE RECORDS SUMMARY | 2023-12-19 08:52 | External Medical Summary | Summary of Care ---
Author Name Unknown Organization [facility] Address [address] [place] [address] Phone [phone] Care Team Providers Care Allied Health Teacher Name Role Phone Chadd Ulrich MD Primary Care Provider +1- [phone] Reason for Visit * Reason Comments Outpatient Testing Encounter Details Date Type Department Care Team (Late st Contact Info) Description 07/27/2023 3:30 PM EST Laboratory Laboratory, [facility] [address] [place] [id number] [facility] [address] [place] [address] Urinary frequency Allergies Active Allergy Reactions Criticality Noted Date Comments Other Allergy (See Comments) 021 pollen documented as of this encounter (statuses as of 07/27/2023) Medications Medication Sig Dispensed Refills Start Date End Date Status Spacer/Aero-Holding Chambers Device Use with inhaler. 1 Each 3 09/08/2022 Active Albuterol Sulfate HFA 108 (90 Base) MCG/ACT Inhalation Aerosol Solution Inhale 2 Puffs by mouth in the morning and 2 Puffs at noon and 2 Puffs in the evening and 2 Puffs before bedtime. 54 g 1 09/08/2022 Active Mometasone Furoate 50 MCG/ACT Nasal Suspension Administer 2 Sprays into each nostril in the morning. 17 g 6 12/29/2022 Active Montelukast Sodium 10 MG Oral Tablet [...] before bedtime. As directed. 120 mL 12 02/08/2023 Active Doxycycline Hyclate 100 MG Oral Capsule Take 1 Capsule by mouth in the morning and 1 Capsule before bedtime. Do all this for 14 days. 28 Capsule 0 07/19/2023 Active documented as of this encounter (statuses as of 07/27/2023) Active Problems Problem Noted Date Diagnosed Date Mild persistent asthma without complication 04/2023 documented as of this encounter (statuses as of 07/27/2023) Resolved Problems Problem Noted Date Diagnosed Date [...] as of this encounter (statuses as of 07/27/2023) Immunizations Name Administration Dates Next Due SEASONAL [...] 10/04/2023 12:15 PM EST Office Visit Otolaryngology [facility] [address] [place] [address] Leslie Alcocer MD [address] [place] [address] 01/18/2024 11:40 AM EDT Office Visit Family Practice [facility] [address] [place] [address] Lorena Beckett CRNP [address] [place] [address] Pending Results Name Type Priority Associated Diagnoses Date /Time HEMOGLOBIN A1C Lab Routine Urinary frequency 07/27/2023 3:28 PM EST BASIC METABOLIC PANEL Lab Routine Urinary frequency 07/27/2023 3:28 PM EST URINALYSIS, REFLEX TO MICROSCOPIC Lab Routine Urinary frequency 07/27/2023 3:28 PM EST CHLAMYDIA TRACHOMATIS AND NEISSERIA GONORRHOEAE, AMPLIFIED PROBE Lab Routine Urinary frequency 07/27/2023 3:28 PM EST Health Maintenance Due Date Last Done Comments [...] this encounter Medical Devices Implanted Type Area Aligning Checker Device Identifier Shelf Expiration Date Model / Serial / Lot Propell Sinus Implant Implanted:Qty: 2 on 11/24/2020 by Leslie Alcocer MD at OR [facility] Nose INTERSECT ENT 07/22/2022 [id number] / / [id number] documented as of this encounter Visit Diagnoses Diagnosis Urinary frequency documented in this encounter Care Teams Allied Health Teacher Relationship Specialty Start Date End Date Chadd Ulrich MD [address] [place] [address] PCP - General 11/27/02 documented as of this encounter
--- OUTSIDE RECORDS SUMMARY | 2023-12-19 08:52 | External Medical Summary | Summary of Care ---
Author Name Unknown Organization [facility] Address [address] [facility] [place] [address] Phone [phone] Care Team Providers Care Advanced Quality Engineer Name Role Phone Chadd Ulrich MD Primary Care Provider +1- [phone] Reason for Visit * Reason Onset Date Comments Medication Refill 07/27/2023 Encounter Details Date Type Department Care Team (Late st Contact Info) Description 07/27/[address] [facility] [address] [place] [address] Leslie Alcocer MD [address] [place] [address] Allergies Active Allergy Reactions Criticality Noted Date [...] in the morning. 17 g 6 12/29/2022 3 Discontinue d(Refill) Budesonide 0.5 MG/2ML Inhalation Suspension (Pulmicort) Inhale 0.5 mg via nebulizer in the morning and 0.5 mg before bedtime. As directed. 120 mL 12 02/08/2023 3 Discontinue d(Refill) documented as of this encounter [...] Telephone Encounter - Leslie Alcocer MD - 07/29/2023 11:55 AM EST Signed Prescriptions: Disp Refills Mometasone Furoate 50 MCG/ACT Nasal Suspen*17 g 6 Sig: Administer 2 Sprays into each nostril in the morning. Authorizing Provider: LESLIE ALCOCER Budesonide 0.5 MG/2ML Inhalation Suspensio*120 mL 12 Sig: Inhale 0.5 mg via nebulizer in the morning and 0.5 mg before bedtime. As directed. Authorizing Provider: LESLIE ALCOCER * Telephone Encounter - Kayli Moreau LPN - 07/27/2023 3:18 PM EST Pending Prescriptions: Disp Refills Mometasone Furoate 50 MCG/ACT Nasal Suspe*17 g 6 Sig: Administer 2 Sprays into each nostril in the morning. Budesonide 0.5 MG/2ML Inhalation Suspensi*120 mL 12 Sig: Inhale 0.5 mg via nebulizer in the morning and 0.5 mg before bedtime. As directed. Last appt: 09/21/2022 (in office), Visit date not found (telemedicine) Next appt: 10/04/2023 documented in this encounter Plan of Treatment Upcoming Encounters Date Type Department Care Team (Late st Contact Info) Description 10/04/2023 12:15 PM EST Office Visit Otolaryngology [facility] [address] [place] [address] Leslie Alcocer MD [address] [address] 01/18/2024 11:40 AM EDT Office Visit Family Practice [facility] [address] [place] [address] Lorena Beckett CRNP [address] [place] [address] Health Maintenance Due Date Last Done Comments [...] this encounter Medical Devices Implanted Type Area Forestry Engineer Device Identifier Shelf Expiration Date Model / Serial / Lot Propell Sinus Implant Implanted:Qty: 2 on 11/24/2020 by Leslie Alcocer MD at OR [facility] Nose INTERSECT ENT 07/22/2022 [id number] / / [id number] documented as of this encounter Care Teams Advanced Quality Engineer Relationship Specialty Start Date End Date Chadd Ulrich MD [address] [place] [address] PCP - General 11/27/02 documented as of this encounter
--- OUTSIDE RECORDS SUMMARY | 2023-12-19 08:52 | External Medical Summary ---
Author Name Unknown Address Unknown Organization K01:[facility] [place] - [address] [facility] [place] [address] Laboratory Report Ordering Provider Test Date Status STEVE HAYNES 07/27/2023 15:28:50 Final Observation Date Value Abnormality Reference (Units ) Status Color of Urine by Auto 07/27/2023 15:28:50 Yellow Colorless, Light Yellow, Yellow, Dark Yellow Final Clarity, Urine 07/27/2023 15:28:50 Clear Clear Final Glucose [Mass/volume] in Urine by Automated test strip 07/27/2023 15:28:50 Negative Negative (mg/dL) Final Bilirubin.total [Presence] in Urine by Automated test strip 07/27/2023 15:28:50 Negative Negative Final Ketones [Mass/volume] in Urine by Automated test strip 07/27/2023 15:28:50 Negative Negative (mg/dL) Final Specific gravity, Urine 07/27/2023 15:28:50 1.028 1.003-1.030 Final Hemoglobin [Presence] in Urine by Automated test strip 07/27/2023 15:28:50 Negative Negative Final pH, Urine 07/27/2023 15:28:50 7.0 5.0-7.5 (Units) Final Protein [Mass/volume] in Urine by Automated test strip 07/27/2023 15:28:50 Trace Abnormal Negative (mg/dL) Final Urobilinogen [Mass/volume] in Urine by Automated test strip 07/27/2023 15:28:50 Normal Normal (mg/dL) Final Nitrite [Presence] in Urine by Automated test strip 07/27/2023 15:28:50 Negative Negative Final Leukocyte esterase [Presence] in Urine by Automated test strip 07/27/2023 15:28:50 Negative Negative Final Annotation Comment 07/27/2023 15:28:50 Final Screen negative - Microscopi c not performed. Performing Location LABORATORY C - [address] [facility] [place] [address]
--- OUTSIDE RECORDS SUMMARY | 2023-12-19 08:52 | External Medical Summary | Summary of Care ---
Author Name Unknown Organization [facility] Address [address] [facility] [place] [address] Phone [phone] Care Team Providers Care Telecommunication Tower Technician Name Role Phone Chadd Ulrich MD Primary Care Provider +1- [phone] Reason for Visit * Reason Comments Urinary Tract Infection Symptoms Pt c/o urgency however is unable to urinate x 4 days Encounter Details Date Type Department Care Team (Late st Contact Info) Description 07/27/2023 3:00 PM EST Office Visit Family [facility] [address] [place] [address] Mike Crane MD [address] [place] [address] Urinary frequency* Allergies Active Allergy Reactions Criticality Noted Date Comments Other Allergy (See Comments) 021 pollen documented as of this encounter (statuses as of 07/28/2023) Medications Medication Sig Dispensed Refills Start Date [...] as of this encounter (statuses as of 07/28/2023) Active Problems Problem Noted Date Diagnosed Date Mild persistent asthma without complication 04/2023 documented as of this encounter (statuses as of 07/28/2023) Resolved Problems Problem Noted Date Diagnosed Date [...] as of this encounter (statuses as of 07/28/2023) Immunizations Name Administration Dates Next Due SEASONAL [...] Sign Reading Time Taken Comments Blood Pressure 126/78 07/27/2023 3:04 PM EST Pulse 76 07/27/2023 3:04 PM EST Temperature 37 C (98.6 F) 07/27/2023 3:04 PM EST Respiratory Rate 18 07/27/2023 3:04 PM EST Oxygen Saturation - - Inhaled Oxygen Concentration - - Weight 78.5 kg (173 lb) 07/27/2023 3:04 PM EST Height 182.9 cm (6') 07/27/2023 3:04 PM EST Body Mass Index 23.46 07/27/2023 3:04 PM EST documented in this encounter Progress Notes * Mike Crane MD - 07/28/2023 12:26 AM EST SUBJECTIVE: Fransico Quinn is a 37 year old male. Chief Complaint Patient presents with Urinary Tract Infection Symptoms Pt c/o urgency however is unable to urinate x 4 days HPI: Urinary urgency x 4 days. On doxycycline. No other symptoms. No hx of urologic issues. Patient Active Problem List Diagnosis Code Mild persistent asthma without complication J45.30 Current Outpatient Medications Medication Sig Dispense Refill Spacer/Aero-Holding Chambers Device Use with inhaler. 1 Each 3 Albuterol Sulfate HFA 108 (90 Base) MCG/ACT Inhalation Aerosol Solution Inhale 2 Puffs by mouth in the morning and 2 Puffs at noon and 2 Puffs in the evening and 2 Puffs before bedtime. 54 g 1 Mometasone Furoate 50 MCG/ACT Nasal Suspension Administer 2 Sprays into each nostril in the morning. 17 g 6 Montelukast Sodium 10 MG Oral Tablet (Singulair) Take 1 Tablet by mouth in the morning. 90 Tablet 3 Fluticasone Furoate-Vilanterol 200-25 MCG/ACT Inhalation Aerosol Powder Breath Activated (BREO ellipta) Inhale 1 Puff by mouth in the morning. 180 Each 3 Levocetirizine Dihydrochloride 5 MG Oral Tablet Take 1 Tablet by mouth every evening. 90 Tablet 3 Budesonide 0.5 MG/2ML Inhalation Suspension (Pulmicort) Inhale 0.5 mg via nebulizer in the morning and 0.5 mg before bedtime. As directed. 120 mL 12 Doxycycline Hyclate 100 MG Oral Capsule Take 1 Capsule by mouth in the morning and 1 Capsule beforebedtime. Do all this for 14 days. 28 Capsule 0 No current facility-administered medications for this visit. Allergy: Review of patient's allergies indicates: Allergen Reactions Other Allergy (See Comments) pollen OBJECTIVE: BP 126/78 | Pulse 76 | Temp 37 C (98.6 F) (Tympanic) | Resp 18 | Ht 1.829 m (6') | Wt 78.5 kg (173 lb) | BMI 23.46 kg/m | BSA 2 m Gen: nad ASSESSMENT AND PLAN: (R35.0) Urinary frequency (primary encounter diagnosis) Plan: URINALYSIS, REFLEX TO MICROSCOPIC, CHLAMYDIA TRACHOMATIS AND NEISSERIA GONORRHOEAE, AMPLIFIED PROBE, HEMOGLOBIN A1C, BASIC METABOLIC PANEL Follow up as needed. No other complaints were offered at this time. Mike Crane MD documented in this encounter Nursing Notes * Marlyn Jaquez LPN - 07/27/2023 3:03 PM EST The patient has been properly identified by confirmation of name and date of . Chief Complaint Patient presents with Urinary Tract Infection Symptoms Pt c/o urgency however is unable to urinate x 4 days documented in this encounter Plan of Treatment Upcoming Encounters Date Type Department Care Team (Late st Contact Info) Description 10/04/2023 12:15 PM EST Office Visit Otolaryngology [facility] [address] [place] [address] Leslie Alcocer MD [address] [place] [address] 01/18/2024 11:40 AM EDT Office Visit Family Practice [facility] [address] [place] [address] Lorena Beckett CRNP [address] [place] [address] Pending Results Name Type Priority Associated Diagnoses Date /Time CHLAMYDIA TRACHOMATIS AND NEISSERIA GONORRHOEAE, AMPLIFIED PROBE Lab Routine Urinary frequency 07/27/2023 3:28 PM EST Scheduled Orders Name Type Priority Associated Diagnoses Orde r Schedule CHLAMYDIA TRACHOMATIS AND NEISSERIA GONORRHOEAE, AMPLIFIED PROBE Lab Routine Urinary frequency Expected: 07/27/2023, Expires: 07/27/2024 Health Maintenance Due Date Last Done Comments Hepatitis B (1 of 3 - 3-dose series) 1985 Pneumococcal Vaccine: Pediatrics (0 to 5 Years) and At-Risk Patients (6 to 64 Years) (1 - PCV) 1991 HIV Screening 2000 Hepatitis C Screening 2003 Depression Screening 04/19/2020 04/19/2019 COVID-19 Vaccine ( season) 2023 12/12/2020 Influenza Vaccine (FLU shot) [...] this encounter Medical Devices Implanted Type Area Computational Physicist Device Identifier Shelf Expiration Date Model / Serial / Lot Propell Sinus Implant Implanted:Qty: 2 on 11/24/2020 by Leslie Alcocer MD at OR [facility] Nose INTERSECT ENT 07/22/2022 [id number] / / [id number] documented as of this encounter Results * BASIC METABOLIC PANEL (07/27/2023 3:28 PM EST) BUN 13 6 - 20 mg/dL 07/28/2023 12:32 AM EST [facility] Creatinine 0.9 0.6 - 1.2 mg/dL 07/28/2023 12:32 AM EST [facility] Estimated Glomerular Filtration Rate >90 >=60 mL/min 07/28/2023 12:32 AM EST [facility] Comment:eGFR is calculated b ased on the CKD-EPI 2020 equation Sodium 141 135 - 146 mmol/L 07/28/2023 12:32 AM EST [facility] Potassium 4.2 3.5 - 5.1 mmol/L 07/28/2023 12:32 AM EST [facility] Chloride 101 98 - 107 mmol/L 07/28/2023 12:32 AM EST [facility] CO2 30 22 - 32 mmol/L 07/28/2023 12:32 AM EST [facility] Anion Gap 10 7 - 15 mmol/L 07/28/2023 12:32 AM EST [facility] Glucose 94 70 - 120 mg/dL 07/28/2023 12:32 AM EST [facility] Calcium 9.7 8.4 - 10.2 mg/dL 07/28/2023 12:32 AM EST LABORATORY C Blood Venous blood specimen / Unknown Venipuncture / Unknown 07/27/2023 3:28 PM EST 07/27/2023 3:28 PM EST Mike Crane MD LAB BLOOD ORDERAB LES Performing Organization Address City/[facility] Co de Phone Number [facility] [address] [place] [address] * HEMOGLOBIN A1C (07/27/2023 3:28 PM EST) Hemoglobin A1C 4.9 4.0 - 5.6 % 07/28/2023 12:25 AM EST [facility] Comment:The use of HbA1c to monitor glycemic status is based on normal hemoglobin and HbA composition. This test should not be used in patients with abnormal hemoglobin that affects the half life of the red blood cell or the in vivo glycation rates. Estimated Average Glucose 94 <126 mg/dL 07/28/2023 12:25 AM EST LABORATORY C Blood Venous blood specimen / Unknown Venipuncture / Unknown 07/27/2023 3:28 PM EST 07/27/2023 3:28 PM EST Mike Crane MD LAB BLOOD ORDERAB LES Performing Organization Address [facility] de Phone Number [facility] [address] [place] [address] * (ABNORMAL) URINALYSIS, REFLEX TO MICROSCOPIC (07/27/2023 3:28 PM EST) Color, Urine Yellow Colorless, Light Yellow, Yellow, Dark Yellow 07/27/2023 11:48 PM EST [facility] Clarity, Urine Clear Clear 07/27/2023 11:48 PM EST [facility] Glucose, Urine Negative Negative mg/dL 07/27/2023 11:48 PM EST [facility] Bilirubin, Urine Negative Negative 07/27/2023 11:48 PM EST [facility] Ketone, Urine Negative Negative mg/dL 07/27/2023 11:48 PM EST [facility] Specific [place], Urine 1.028 1.003 - 1.030 07/27/2023 11:48 PM EST [facility] Blood, Urine Negative Negative 07/27/2023 11:48 PM EST [facility] pH, Urine 7.0 5.0 - 7.5 Units 07/27/2023 11:48 PM EST [facility] Protein, Urine Trace(A) Negative mg/dL 07/27/2023 11:48 PM EST [facility] Urobilinogen, Urine Normal Normal mg/dL 07/27/2023 11:48 PM EST [facility] Nitrite, Urine Negative Negative 07/27/2023 11:48 PM EST [facility] Esterase, Urine Negative Negative 11:48 PM EST [facility] Comment, Urine 07/27/2023 11:48 PM EST [facility] Comment:Screen negative - Mi croscopic not performed. Urine Non-blood Collection / Unknown 07/27/2023 3:28 PM EST 07/27/2023 3:28 PM EST Mike Crane MD LAB URINE ORDERAB LES [facility] [address] [place] [address] documented in this encounter Visit Diagnoses Diagnosis Urinary frequency- Primary documented in this encounter Care Teams Telecommunication Tower Technician Relationship Specialty Start Date End Date Chadd Ulrich MD [address] [place] [address] PCP - General 11/27/02 documented as of this encounter"
--- OUTSIDE RECORDS SUMMARY | 2023-12-19 08:52 | External Medical Summary | Summary of Care ---
Author Name Unknown Organization [facility] Address [address] [place] [address] Phone [phone] Care Team Providers Care Checkerer Hand Name Role Phone Chadd Ulrich MD Primary Care Provider +1- [phone] Reason for Referral * Evaluate & Treat - Unlimited Visits (Within 3 days (urgent)) - Authorized Specialty Diagnoses / Procedures Referred By Bryson dai Referred To Contact Orthopaedic Surgery / Orthopedics Diagnoses Injury of finger of left hand, initial encounter Fina March CRNP [address] [place] [address] Referral ID Status Reason Start Date Expiration Date Visits Requested Visits Authorized [id number] Authorized Specialty Services Required 09/26/2023 999 999 Question Answer Referral Priority Within 3 days (urgent) Where should this appointment be scheduled? [facility] What body part is the patient being seen for? Hand What condition is the patient being seen for? Sprain/Strain/Tear/Other Reason for Visit * Reason Comments Injury Pt here for L hand r ing finger injury that occurred yesterday. Pt went to Urgent Care, with no openings, pt was recommended to go to ER but unable to go. Bruising and swelling with laceration noted to finger. Pt had last Tdap 09/2022. Encounter Details Date Type Department Care Team (Late st Contact Info) Description 09/26/2023 2:40 PM EST Office Visit [facility] [address] [place] [address] Fina March CRNP [address] [place] [address] Injury of finger of left hand, initial encounter* Allergies Active Allergy Reactions Criticality Noted Date [...] for 8 weeks 60 g 1 07/29/2023 4 Active methylPREDNISolone 4 MG Oral Tablet Therapy [...] Sign Reading Time Taken Comments Blood Pressure 138/84 09/26/2023 2:46 PM EST Pulse 115 09/26/2023 2:46 PM EST Temperature 36.1 C (97 F) 09/26/2023 2:46 PM EST Respiratory Rate 16 09/26/2023 2:46 PM EST Oxygen Saturation 97% 09/26/2023 2:46 PM EST Inhaled Oxygen Concentration - - Weight 79.8 kg (176 lb) 09/26/2023 2:46 PM EST Height - - Body Mass Index 23.87 07/27/2023 3:04 PM EST documented in this encounter Progress Notes * Fina March CRNP - 09/26/2023 3:08 PM EST Images from the original note were not included. History of Present Illness Fransico Quinn is a 37 year old male that presents for Injury (Pt here for L hand ring finger injury that occurred yesterday. Pt went to Urgent Care, with no openings, pt was recommended to go to ER but unable to go. Bruising and swelling with laceration noted to finger. Pt had last Tdap 09/2022.) HPI Here for injury of his L hand fourth digit that occurred yesterday. States his snow plow fell onto the tip of his finger when trying to attach and release it. He went to an urgent care yesterday who could not see him and advised ER. He had some activities with his kids that evening so he did not go. Rates pain 6/10 at rest. Anything that bumps into it or touches it causes worsening pain. He got an OTC finger brace but the compression required to put it on caused too much pain so he could not use it. He had some bleeding yesterday but that has since stopped. Outpatient Medications Marked as Taking for the 09/26/23 encounter (Office Visit) with Fina March CRNP Medication Sig metroNIDAZOLE 1 % External Gel (Metrogel) Apply topically to affected area 2 times a day. To affected area for 8 weeks Fluticasone Furoate-Vilanterol 200-25 MCG/ACT Inhalation Aerosol Powder Breath Activated (BREO ellipta) Inhale 1 Puff by mouth in the morning. Levocetirizine Dihydrochloride 5 MG Oral Tablet Take 1 Tablet by mouth every evening. Montelukast Sodium 10 MG Oral Tablet (Singulair) Take 1 Tablet by mouth in the morning. Physical Exam Vitals: 09/26/23 1446 Temp: 36.1 C (97 F) Pulse: 115 Resp: 16 SpO2: 97% BP: 138/84 Physical Exam Vitals reviewed. Musculoskeletal: Comments: L hand fourth digit: significant swelling and bruising of the distal finger with very limited flexion and extension of the DIP and MIP. Very tender to the touch on the distal finger. Fingeris warm to touch and patient reports sensation to touch. Neurological: Mental Status: He is alert. Assessment and Plan Injury of finger of left hand, initial encounter - XR FINGERS 2 OR MORE VIEWS - ORTHOPAEDICS REFERRAL OP Wrap-Up Check-out note: Xray today Urgent ortho referral Time: I spent a total of 20-29 minutes (exact time 20 mins) on the date of service in preparation, delivery, and documentation of the care provided to Fransico Quinn excluding any time spent in the performance of separately billed services. documented in this encounter Plan of Treatment Upcoming Encounters Date Type Department Care Team (Late st Contact Info) Description 09/27/2023 3:30 PM EST Office Visit Orthopaedics [facility] [address] [place] [address] Steffanie Canchola MD [address] [place] [address] 10/04/2023 12:15 PM EST Office Visit Otolaryngology [facility] [address] [place] [address] Leslie Alcocer MD [address] [place] [address] 01/18/2024 11:40 AM EDT Office Visit Family Practice [facility] [address] [place] [address] Lorena Beckett CRNP [address] [place] [address] Pending Results Name Type Priority Associated Diagnoses Date /Time XR FINGERS 2 OR MORE VIEWS Medical Imaging STAT Injury of finger of left hand, initial encounter 09/26/2023 3:38 PM EST Scheduled Referrals Name Type Priority Associated Diagnoses [...] Depression Screening 04/19/2020 04/19/2019 COVID-19 Vaccine ( - season) 2023 12/12/2020 Influenza Vaccine (FLU [...] this encounter Medical Devices Implanted Type Area Records Technician Device Identifier Shelf Expiration Date Model / Serial / Lot Rod Sinus Implant Implanted:Qty: 2 on 11/24/2020 by Leslie Alcocer MD at OR [facility] Nose INTERSECT ENT 07/22/2022 [id number] / / [id number] documented as of this encounter Visit Diagnoses Diagnosis Injury of finger of left hand, initial encounter- Primary documented in this encounter Care Teams Checkerer Hand Relationship Specialty Start Date End Date Chadd Ulrich MD [address] [place] [address] PCP - General 11/27/02 documented as of this encounter
--- OUTSIDE RECORDS SUMMARY | 2023-12-19 08:52 | External Medical Summary ---
Author Name Unknown Address Unknown Organization [id number]:LABORATORY [facility] [place] - [facility] [address] [place] [address] Laboratory Report Ordering Provider Test Date Status [id number] 07/27/2023 15:28:50 Final Observation Date Value Abnormality Reference (Units ) Status Chlamydia trachomatis rRNA [Presence] in Specimen by ARTURO with probe detection 07/27/2023 15:28:50 Negative Negative Final No Chlamydia trachomatis det ected by baggage inspector-mediated nucleic acid amplification. Neisseria gonorrhoeae rRNA [ Presence] in Specimen by ARTURO with probe detection 07/27/2023 15:28:50 Negative Negative Final No Neisseria gonorrhoeae det ected by baggage inspector-mediated nucleic acid amplification. Performing Location LABORATORY [facility] [place] - [address] [place] [address]
[2023-12-19 08:53] LABS: Basophils # (auto) 0.09 K/uL (0.00-0.20); Basophils % (auto) 0.5 %; Eosinophils # (auto) 0.01 K/uL (0.00-0.50); Eosinophils % (auto) 0.1 %; Hematocrit (blood only) 46.5 % (42.0-52.0); Hemoglobin 15.8 g/dl (14.0-18.0); Immature Granulocytes # (auto) 0.07 K/uL (0.01-0.20); Immature Granulocytes % (auto) 0.4 %; Lymphocytes # (auto) 0.89 K/uL (1.20-3.40); Lymphocytes % (auto) 5.1 %; Mean Corpuscular Volume 94.1 fL (80.0-100.0); Mean Platelet Volume 12.9 fL (9.4-12.4); Monocytes # (auto) 1.07 K/uL (0.11-0.59); Monocytes % (auto) 6.1 %; Neutrophils # (auto) 15.45 K/uL (1.40-6.50); Neutrophils % (auto) 87.8 %; Platelet Count 214 K/uL (130-400); RDW Coefficient of Variation 13.2 % (11.5-14.5); RDW Standard Deviation 45.6 fL (36.4-46.3); Red Blood Count 4.94 M/uL (4.70-6.10); White Blood Count 17.58 K/ul (4.8-10.8)
--- OUTSIDE RECORDS SUMMARY | 2023-12-19 08:53 | External Medical Summary | Summary of Care ---
Author Name Unknown Organization [facility] Address [address] [place] [address] Phone [phone] Care Team Providers Care Car Conditioner Name Role Phone Chadd Ulrich MD Primary Care Provider +1- [phone] Reason for Visit * Reason Onset Date Comments Other 06/21/[address] Encounter Details Date Type Department Care Team Description 06/21/2023 Telephone [facility] [address] [place] [address] Chadd Ulrich MD [address], [place] [id number] Other (FAX NUMBER REQUEST) Allergies Active Allergy Reactions Severity Noted Date Comments Other Allergy (See Comments) 021 pollen documented as of this encounter (statuses as of 07/06/2023) Medications Medication Sig Dispensed Refills Start Date [...] every evening. 90 Tablet 3 01/11/2023 Active predniSONE 10 MG Oral Tablet (Deltasone) Take 4 tab daily x 3 days, then 3 tab daily x 3 days, 2 tab daily x 3 days, then 1 tab daily x 3 days. 30 Tablet 0 01/11/2023 Active Budesonide 0.5 MG/2ML Inhalation Suspension (Pulmicort) Inhale 0.5 mg via nebulizer in the morning and 0.5 mg before bedtime. As directed. 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 smoke Overview: ICD-10 update of inactive term documented as of this encounter (statuses as of 07/06/2023) Resolved Problems Problem Noted Date Resolved Date COPD (chronic obstructive pu lmonary disease) with chronic bronchitis 09/03/2020 09/08/2022 Chronic pharyngitis 05/22/2003 11/16/2017 SWELLING, MASS, OR LUMP IN HEAD AND NECK 003 11/16/2017 Asthma with severity to be determined 11/16/2017 Overview: ICD-10 update of inactive term Other acne 11/16/2017 documented as of this encounter (statuses as of 07/06/2023) Immunizations Name Administration Dates Next Due SEASONAL [...] 0.6 oz pur e alcohol) Weekend-- occasional Sex Assigned at Date Recorded Not on file Job Start Date Occupation Industry Not on file Not on file Not on file documented as of this encounter Miscellaneous Notes * Telephone Encounter - Brittany Sun LPN - 07/06/2023 2:24 PM EDT See MyG. Has attached living will and POA. Please upload to record. * Telephone Encounter - Brittany Sun LPN - 06/21/2023 1:35 PM EDT MyG sent with fax number to the office per request. documented in this encounter Plan of Treatment Upcoming Encounters Date Type Specialty Care Team Description 07/19/2023 Office Visit Family Medicine Lorena Beckett CRNP [address] [facility] [place] [address] Health Maintenance Due Date Last Done Comments [...] 2023 06/18/2022, 07/02/2021, 06/13/2020, Additional history exists O2 ASSESSMENT COMPLETED IN PAST YEAR FOR COPD 09/29/2023 09/29/2022 DTaP,Tdap,and Td Vaccines (7 - Td or Tdap) 09/29/2032 09/29/2022, 09/05/2008, 05/31/1988, Additional history exists GARDASIL-HPV IMMUNIZATION SERIES Aged Out No longer eligible based on patient's age to complete this topic MENINGOCOCCAL (MENACTRA/MENVEO) Aged Out No longer eligible based on patient's age to complete this topic documented as of this encounter Medical Devices Implanted Type Area Review Appraiser Device Identifier Shelf Expiration Date Model / Serial / Lot Propell Sinus Implant Implanted:Qty: 2 on 11/24/2020 by Leslie Alcocer MD at OR [facility] Nose INTERSECT ENT 07/22/2022 [id number] / / [id number] documented as of this encounter Care Teams Car Conditioner Relationship Specialty Start Date End Date Chadd Ulrich MD [address] [place] [address] PCP - General 11/27/02 documented as of this encounter
--- OUTSIDE RECORDS SUMMARY | 2023-12-19 08:53 | External Medical Summary | Summary of Care ---
Author Name Unknown Organization [facility] Address [address] [place] [address] Phone [phone] Care Team Providers Care Program Therapist Name Role Phone Chadd Ulrich MD Primary Care Provider +1- [phone] Reason for Visit * Reason Onset Date Comments Other 06/21/[address] Encounter Details Date Type Department Care Team Description 06/21/2023 Telephone [facility] [address] [place] [address] Chadd Ulrich MD [address], [place] [id number] Other (FAX NUMBER REQUEST) Allergies Active Allergy Reactions Severity Noted Date Comments Other Allergy (See Comments) 021 pollen documented as of this encounter (statuses as of 07/07/2023) Medications Medication Sig Dispensed Refills Start Date [...] as of this encounter (statuses as of 07/07/2023) Active Problems Problem Noted Date Mild persistent asthma with exacerbation 09/08/2022 Mixed simple and mucopurulent chronic br onchitis 09/08/2022 Chronic frontal sinusitis 09/08/2022 Acute sinusitis 04/14/2022 Other chronic sinusitis 11/12/2019 Hypertrophy of both inferior nasal turbi nates 11/12/2019 Deviated nasal septum 11/12/2019 Anosmia 11/12/2019 Asthma in remission 11/16/2017 Chronic lymphadenitis 05/22/2003 Allergic rhinitis 05/22/2003 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-hand 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 smoke Overview: ICD-10 update of inactive term documented as of this encounter (statuses as of 07/07/2023) Resolved Problems Problem Noted Date Resolved Date COPD (chronic obstructive pu lmonary disease) with chronic bronchitis 09/03/2020 09/08/2022 Chronic pharyngitis 05/22/2003 11/16/2017 SWELLING, MASS, OR LUMP IN HEAD AND NECK 003 11/16/2017 Asthma with severity to be determined 11/16/2017 Overview: ICD-10 update of inactive term Other acne 11/16/2017 documented as of this encounter (statuses as of 07/07/2023) Immunizations Name Administration Dates Next Due SEASONAL [...] encounter Miscellaneous Notes * Telephone Encounter - ED Ramon - 07/07/2023 10:20 AM EDT Printed and FIMS'd. 07/07/2023 * Telephone Encounter - Brittany Sun LPN [...] Visit Family Medicine Lorena Beckett CRNP [address] [facility] [place] [address] Health Maintenance Due Date Last Done Comments [...] this encounter Medical Devices Implanted Type Area Polarity Tester Device Identifier Shelf Expiration Date Model / Serial / Lot Propell Sinus Implant Implanted:Qty: 2 on 11/24/2020 by Leslie Alcocer MD at OR [facility] Nose INTERSECT ENT 07/22/2022 [id number] / / [id number] documented as of this encounter Care Teams Program Therapist Relationship Specialty Start Date End Date Chadd Ulrich MD [address] [place] [address] PCP - General 11/27/02 documented as of this encounter
--- OUTSIDE RECORDS SUMMARY | 2023-12-19 08:53 | External Medical Summary ---
Author Name Unknown Address Unknown Organization K01:LAB[facility]ATORY [facility] [place] - [address] [place] [address] Laboratory Report Ordering Provider Test Date Status STEVE HAYNES 07/27/2023 15:28:34 Final Observation Date Value Abnormality Reference (Units ) Status HbA1C 07/27/2023 15:28:34 4.9 4.0-5.6 (% ) Final The use of HbA1c to monitor glycemic status is based on normal hemoglobin and HbA composition. This test should not be used in patients with abnormal hemoglobin that affects the half life of the red blood cell or the in vivo glycation rates. Glucose, estimated average 07/27/2023 15:28:34 94 <126 (mg/dL) Final Performing Location LABORATORY [facility] [place] - [address] [place] [address]
--- OUTSIDE RECORDS SUMMARY | 2023-12-19 08:53 | External Medical Summary | Summary of Care ---
Author Name Unknown Organization [facility] Address [address] [place] [address] Phone [phone] Care Team Providers Care Precipitator Name Role Phone Chadd Ulrich MD Primary Care Provider [phone] Reason for Visit * Reason Comments Follow Up Pt here for a 6m f/u . No new sinus infections but feels like he maybe having one coming on. Rash Rash around his nose , question if from the nasal spray. Pt has stopped using the spray. Does have an appointment to see derm in july Encounter Details Date Type Department Care Team (Late st Contact Info) Description 07/19/2023 11:40 AM EDT Office Visit Family Practice [facility] [address] [place] [address] Lorena Beckett CRNP [address] [place] [place] [address] Perioral dermatitis*; Chronic frontal sinusitis; Mild persistent asthma without complication Allergies Active Allergy Reactions Criticality Noted Date Comments Other Allergy (See Comments) 021 pollen documented as of this encounter (statuses as of 07/20/2023) Medications Medication Sig Dispensed Refills Start Date [...] for 14 days. 28 Capsule 0 07/19/2023 3 Active predniSONE 10 MG Oral Tablet (Deltasone) Take 4 tab daily x 3 days, then 3 tab daily x 3 days, 2 tab daily x 3 days, then 1 tab daily x 3 days. 30 Tablet 0 01/11/2023 3 Discontinu ed(Medicat ion List Clean Up) documented as of this encounter (statuses as of 07/20/2023) Active Problems Problem Noted Date Diagnosed Date Perioral dermatitis 07/19/2023 Mild persistent asthma with exacerbation 022 Chronic frontal sinusitis 09/08/2022 Acute sinusitis 04/14/2022 Hypertrophy of both inferior nasal turbinates Deviated nasal septum 11/12/2019 Anosmia 11/12/2019 Asthma in remission 11/16/2017 Chronic lymphadenitis 05/22/2003 Allergic rhinitis 05/22/2003 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-hand tobacco smok e Overview: ICD-10 update of inactive term documented as of this encounter (statuses as of 07/20/2023) Resolved Problems Problem Noted Date Diagnosed Date Resolved Date 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 09/08/2022 07/19/2023 COPD (chronic obstructive pu lmonary disease) with chronic bronchitis 09/03/2020 09/08/2022 Other chronic sinusitis 11/12/201906/21 Chronic pharyngitis 05/22/2003 11/16/19 18 SWELLING, MASS, OR LUMP IN HEAD AND NECK 05/22/2003 11/16/2017 Asthma with severity to be determined 11/16/2017 Overview: ICD-10 update of inactive term Other acne 11/16/2017 documented as of this encounter (statuses as of 07/20/2023) Immunizations Name Administration Dates Next Due SEASONAL [...] Sign Reading Time Taken Comments Blood Pressure 118/74 07/19/2023 11:37 AM EDT Pulse 102 07/19/2023 11:37 AM EDT Temperature 37.3 C (99.1 F) 07/19/2023 1 1:37 AM EDT Respiratory Rate 16 07/19/2023 11:3 7 AM EDT Oxygen Saturation 96% 07/19/2023 11: 37 AM EDT Inhaled Oxygen Concentration - - Weight 79.2 kg (174 lb 11.2 oz) 023 11:37 AM EDT Height 182.9 cm (6') 07/19/2023 11:37 AM EDT Body Mass Index 23.69 07/19/2023 11:37 AM EDT documented in this encounter Progress Notes * Lorena BeckettlleFINN - 07/19/2023 11:36 AM EDT Follow up Family Medicine Visit CC: Chief Complaint Patient presents with Follow Up Pt here for a 6m f/u. No new sinus infections but feels like he maybe having one coming on. Rash Rash around his nose, question if from the nasal spray. Pt has stopped using the spray. Does have an appointment to see derm in july History of Present Illness: Fransico Quinn is a 37 year old male presenting for 6 month follow up. Asthma has been stable since December. No recent flares. On Breo, singulair and xyzal. Dupixent was denied at ENT in the past. Rash on face for the last 4 months. Tried steroid cream. It is around and below nose. Feels irritated and itchy. He is unsure if nasal spray he was using. Social History Socioeconomic History Marital status: Spouse [...] on file Housing Stability: Not on file PMH: Past Medical History: Diagnosis Date ASTHMA W-O STATUS ASTHM SECOND-HAND TOBACCO SMOKE Past Surgical History: Procedure Laterality Date CIRCUMCISION W/CLAMP,DORSAL BLOCK, NASAL ENDOSCOPY,TOTAL ETHMOIDECTOMY Bilateral 11/24/2020 NASAL SINUS ENDOSCOPY WITH ETHMOIDECTOMY TOTAL performed by Leslie Alcocer MD at OR [facility] NASAL/SINUS ENDO W/FRONTAL SINUS DILATION Bilateral 11/24/2020 NASAL/SINUS ENDOSCOPY SURGICAL, W/FRONTAL SINUS DILATION performed by Leslie Alcocer MD at OR [facility] NASAL/SINUS ENDOSCOPY TOTAL W/FRONT SINUS EXPLORE/TISSUE REMOVAL Bilateral 11/24/2020 NASAL SINUS ENDOSCOPY ETHMOIDECTOMY TOTAL WITH FRONTAL SINUS EXPLORATION/TISSUE REMOVAL performed by Leslie Alcocer MD at OR [facility] STEREOTACTIC CRANIAL EXTRADURAL NAVIGATION N/A 11/24/2020 STEREOTACTIC CRANIAL EXTRADURAL NAVIGATION performed by Leslie Alcocer MD at OR [facility] THERAPEUTIC FRACTURE OF NOSE Bilateral 11/24/2020 FRACTURE OF NASAL TURBINATES THERAPEUTIC performed by Leslie Alcocer MD at OR [facility] No outpatient medications have been marked as taking for the 07/19/23 encounter (Office Visit) Lorena Deutsch CRNP. Review of patient's allergies indicates: Allergen Reactions Other Allergy (See Comments) pollen Most Recent Immunizations Administered Date(s) Administered SEASONAL INFLUENZA, PF, 6 M & Above, IM , (FLULAVAL or FLUZONE) 06/18/2022 Seasonal Influenza, Quadrivalent, No Preserve, IM 06/13/2020 Seasonal Influenza, Split, IIV3, With Preserve, Inj 06/19/2016 TDAP (age 10 and older)(Boostrix) 09/29/2022 TDAP (age 11 and older)(Adacel) 09/05/2008 Review of Systems: Review of Systems HENT: Positive for sinus pressure. Respiratory: Negative for shortness of breath. Cardiovascular: Negative for chest pain. Skin: Positive for rash. Physical Exam: Filed Vitals: 07/19/23 1137 BP: 118/74 Pulse: 102 Resp: 16 Temp: 37.3 C (99.1 F) SpO2: 96% Weight: 79.2 kg (174 lb 11.2 oz) Height: 1.829 m (6') Physical Exam HENT: Head: Normocephalic. Cardiovascular: Rate and Rhythm: Normal rate and regular rhythm. Pulmonary: Effort: Pulmonary effort is normal. Breath sounds: Normal breath sounds. Neurological: General: No focal deficit present. Mental Status: He is alert and oriented to person, place, and time. Psychiatric: Mood and Affect: Mood normal. Behavior: Behavior normal. Thought Content: Thought content normal. Judgment: Judgment normal. Assessment and Plan: 1. Perioral dermatitis PRESENT FOR 4 MONTHS He did try steroid cream with no improvement Add doxycycline ? Cause is steroid nasal spray Change to cetaphil soap and cream 2. Chronic frontal sinusitis With some mild frontal pressure He did stop nasal steroid a few weeks ago No flare since last appt Follow up with ent Hold steroid nasal spray for 1 more week On doxycycline for perioral dermatitis 3. Mild persistent asthma without exacerbation Stable Move singulair and xyzal to pm dosing Continue breo I have advised the patient to call our office incase of any worsening or new symptoms. I spent a total of 20-29 minutes (exact time 25 mins) on the date of service in preparation, delivery, and documentation of the care provided to Fransico Quinn excluding any time spent in the performance of separately billed services. Bishnu, RIKY, FINN [facility] Family Medicine documented in this encounter Plan of Treatment Upcoming Encounters Date Type Department Care Team (Late st Contact Info) Description 07/21/2023 9:20 AM EDT Office Visit Dermatology[address] [address] Barb Maldonado PA-C [address] [place] [address] [place] [address] 10/04/2023 12:15 PM EST Office Visit Otolaryngology [facility] [address] [place] [address] Leslie Alcocer MD [address] [place] [address] 01/18/2024 11:40 AM EDT Office Visit Family Practice [facility] [address] [place] [address] Lorena Beckett CRNP [address] [place] [address] Health Maintenance Due Date Last Done Comments [...] this encounter Medical Devices Implanted Type Area Motor Vehicle Compliance Analyst Device Identifier Shelf Expiration Date Model / Serial / Lot Propell Sinus Implant Implanted:Qty: 2 on 11/24/2020 by Leslie Alcocer MD at OR [facility] Nose INTERSECT ENT 07/22/2022 [id number] / / [id number] documented as of this encounter Visit Diagnoses Diagnosis Perioral dermatitis- Primary Rosacea Chronic frontal sinusitis Mild persistent asthma without complication Unspecified asthma documented in this encounter Care Teams Precipitator Relationship Specialty Start Date End Date [facility] Ul[facility] [address] [facility] [address] [facility] - General 11/27/02 documented as of this encounter
[2023-12-19] MEDS: ONDANSETRON INJ 2 MG/ML 2 ML VIAL ONE (08:54)
[2023-12-19 09:01] LABS: Partial Thromboplastin Time 28 Seconds (21-31); Prothrombin Time 11.3 Seconds (9.0-12.0)
[2023-12-19] MEDS: PANTOprazole 80 MG in DEXTROSE 5% 100 ML IV ONE (09:03)
--- NOTE | 2023-12-19 09:03 | Emergency Department Note ---
History of Present Illness General Chief complaint: Vomiting Stated complaint: vomiting blood, abd pain Time Seen by Provider: 12/19/23 08:34 History of Present Illness Provider Complaint: + coffee ground emesis and + melena Onset (ago): 1 day(s) Pain Consistency: + intermittent Severity: mild Maximum Pain Intensity: 2 Current Pain Intensity: 2 Relieved By: + none Exacerbated By: + bowel movement and + vomiting Context: + alcohol abuse (9-10 drinks a day of vodka and white claw. No drink yesterday.); no history of GI bleed, no liver disease, no hemorrhoids or no frequent NSAID use Associated symptoms: + abdominal pain, + nausea, + vomiting and + other (Patient reports he feels very shaky since he did not drink alcohol yesterday); no headaches or no shortness of breath HPI Narrative: No falls or trauma Home Medications Medication Instructions Recorded Confirmed Type budesonide 0.5 mg/2 mL suspension 0.5 mg inhalation [facility] 12/19/23 12/19/23 History for nebulization fluticasone furoate 200 1 inh inhalation [facility] 12/19/23 12/19/23 History mcg-vilanterol 25 mcg/dose inhalation powder (Breo Ellipta) levocetirizine 5 mg tablet 5 mg PO QPM 12/19/23 12/19/23 History mometasone 50 mcg/actuation nasal 2 spray intranasal QA 12/19/23 12/19/23 History spray montelukast 10 mg tablet 10 mg PO QPM 12/19/23 12/19/23 History Allergies Allergy/AdvReac Type Severity Reaction Status Date / Time No Known Allergies Allergy Verified 10/09/23 12:37 Past Med/Surg History Medical History Mild persistent asthma without complication Surgical History History of sinus surgery Social History (Updated 12/19/23 @ 09:00 by Jarrett Delgado MD) Smoking Status: Former smoker Smoking End Date: 4 years ago; Hx Alcohol Use: Yes Alcohol type: hard liquor and other Alcohol Intake Frequency Comment: 9-10 drinks day vodka and white claw Hx Substance Use: No Preferred Language: Colombian Communication Ability: Effective Jail Officer Required: No Beliefs That Will Affect Care: None Current Living Situation: Spouse Other Information That Helps Us Care for You: No Feels Safe at Home: Yes Safety Concerns: Feels Safe At This Time Assistive Devices: None Physical Exam 2 Vital Signs: Vital Signs - 24 hr 12/19/23 08:12 12/19/23 08:20 12/19/23 08:23 Temperature 36.3 C L Temperature Source Temporal Artery Sc an Pulse Rate 131 H 126 H Pulse Rate [Apical ] Pulse Rate from Sp O2 Sensor Pulse Rhythm Regular Pulse Strength Normal Respiratory Rate 18 22 Respiratory Effort / Characteristics Non-Labored Sponta neous Respiratory Depth Normal Respiratory Patter n Regular Blood Pressure 131/93 120/91 Blood Pressure [Ri ght Arm] Blood Pressure Annalise n 105 97 Blood Pressure Annalise n [Right Arm] Blood Pressure Pos ition Sitting Pulse Oximetry 96 Oxygen Delivery Me thod Room Air Sepsis Recent Feve r Within 48 Hours No Sepsis New/Unexpla ined Change in Men german Status No Sepsis Action Take n by Nursing No Action Required 12/19/23 08:23 12/19/23 08:25 12/19/23 08:30 Temperature Temperature Source Pulse Rate 116 H Pulse Rate [Apical ] 120 H Pulse Rate from Sp O2 Sensor 229 H Pulse Rhythm Pulse Strength Respiratory Rate 16 20 Respiratory Effort / Characteristics Non-Labored Sponta neous Respiratory Depth Normal Respiratory Patter n Blood Pressure 127/100 Blood Pressure [Ri ght Arm] 120/91 Blood Pressure Annalise n 111 Blood Pressure Annalise n [Right Arm] 100 Blood Pressure Pos ition Pulse Oximetry 96 94 Oxygen Delivery Me thod Room Air Sepsis Recent Feve r Within 48 Hours Sepsis New/Unexpla ined Change in Men german Status Sepsis Action Take n by Nursing 12/19/23 08:30 12/19/23 08:39 12/19/23 08:40 Temperature Temperature Source Pulse Rate 120 H 112 H Pulse Rate [Apical ] Pulse Rate from Sp O2 Sensor 117 H 111 H Pulse Rhythm Pulse Strength Respiratory Rate 17 23 Respiratory Effort / Characteristics Respiratory Depth Respiratory Patter n Blood Pressure Blood Pressure [Ri ght Arm] Blood Pressure Annalise n Blood Pressure Annalise n [Right Arm] Blood Pressure Pos ition Pulse Oximetry 94 94 95 Oxygen Delivery Me thod Room Air Sepsis Recent Feve r Within 48 Hours Sepsis New/Unexpla ined Change in Men german Status Sepsis Action Take n by Nursing 12/19/23 08:50 12/19/23 09:00 12/19/23 09:00 Temperature Temperature Source Pulse Rate 120 H 110 H Pulse Rate [Apical ] Pulse Rate from Sp O2 Sensor 119 H 111 H Pulse Rhythm Pulse Strength Respiratory Rate 21 20 Respiratory Effort / Characteristics Respiratory Depth Respiratory Patter n Blood Pressure 125/95 Blood Pressure [Ri ght Arm] Blood Pressure Annalise n 108 Blood Pressure Annalise n [Right Arm] Blood Pressure Pos ition Pulse Oximetry 95 94 Oxygen Delivery Me thod Sepsis Recent Feve r Within 48 Hours Sepsis New/Unexpla ined Change in Men german Status Sepsis Action Take n by Nursing 12/19/23 09:10 12/19/23 09:36 12/19/23 09:40 Temperature Temperature Source Pulse Rate 117 H 108 H 121 H Pulse Rate [Apical ] Pulse Rate from Sp O2 Sensor 115 H 108 H 122 H Pulse Rhythm Pulse Strength Respiratory Rate 16 16 15 Respiratory Effort / Characteristics Respiratory Depth Respiratory Patter n Blood Pressure Blood Pressure [Ri ght Arm] Blood Pressure Annalise n Blood Pressure Annalise n [Right Arm] Blood Pressure Pos ition Pulse Oximetry 95 95 95 Oxygen Delivery Me thod Sepsis Recent Feve r Within 48 Hours Sepsis New/Unexpla ined Change in Men german Status Sepsis Action Take n by Nursing 12/19/23 09:50 12/19/23 10:00 12/19/23 10:00 Temperature Temperature Source Pulse Rate 114 H 113 H Pulse Rate [Apical ] Pulse Rate from Sp O2 Sensor 114 H 113 H Pulse Rhythm Pulse Strength Respiratory Rate 16 17 Respiratory Effort / Characteristics Respiratory Depth Respiratory Patter n Blood Pressure 139/95 Blood Pressure [Ri ght Arm] Blood Pressure Annalise n 106 Blood Pressure Annalise n [Right Arm] Blood Pressure Pos ition Pulse Oximetry 95 95 Oxygen Delivery Me thod Sepsis Recent Feve r Within 48 Hours Sepsis New/Unexpla ined Change in Men german Status Sepsis Action Take n by Nursing 12/19/23 10:10 12/19/23 10:10 12/19/23 10:20 Temperature Temperature Source Pulse Rate 117 H 127 H Pulse Rate [Apical ] 127 H Pulse Rate from Sp O2 Sensor 117 H 129 H Pulse Rhythm Pulse Strength Respiratory Rate 15 17 20 Respiratory Effort / Characteristics Non-Labored Sponta neous Respiratory Depth Normal Respiratory Patter n Blood Pressure Blood Pressure [Ri ght Arm] 139/95 Blood Pressure Annalise n Blood Pressure Annalise n [Right Arm] 109 Blood Pressure Pos ition Pulse Oximetry 96 94 94 Oxygen Delivery Me thod Room Air Sepsis Recent Feve r Within 48 Hours Sepsis New/Unexpla ined Change in Men german Status Sepsis Action Take n by Nursing 12/19/23 10:30 12/19/23 10:30 12/19/23 10:40 Temperature Temperature Source Pulse Rate 119 H 113 H Pulse Rate [Apical ] Pulse Rate from Sp O2 Sensor 121 H 113 H Pulse Rhythm Pulse Strength Respiratory Rate 28 H 23 Respiratory Effort / Characteristics Respiratory Depth Respiratory Patter n Blood Pressure 140/89 Blood Pressure [Ri ght Arm] Blood Pressure Annalise n 103 Blood Pressure Annalise n [Right Arm] Blood Pressure Pos ition Pulse Oximetry 97 95 Oxygen Delivery Me thod Sepsis Recent Feve r Within 48 Hours Sepsis New/Unexpla ined Change in Men german Status Sepsis Action Take n by Nursing 12/19/23 10:50 12/19/23 11:00 12/19/23 11:00 Temperature Temperature Source Pulse Rate 124 H 125 H Pulse Rate [Apical ] Pulse Rate from Sp O2 Sensor 123 H 123 H Pulse Rhythm Pulse Strength Respiratory Rate 17 20 Respiratory Effort / Characteristics Respiratory Depth Respiratory Patter n Blood Pressure 120/89 Blood Pressure [Ri ght Arm] Blood Pressure Annalise n 101 Blood Pressure Annalise n [Right Arm] Blood Pressure Pos ition Pulse Oximetry 95 95 Oxygen Delivery Me thod Sepsis Recent Feve r Within 48 Hours Sepsis New/Unexpla ined Change in Men german Status Sepsis Action Take n by Nursing 12/19/23 11:10 12/19/23 11:20 12/19/23 11:30 Temperature Temperature Source Pulse Rate 121 H 119 H 118 H Pulse Rate [Apical ] Pulse Rate from Sp O2 Sensor 122 H 120 H 123 H Pulse Rhythm Pulse Strength Respiratory Rate 17 19 19 Respiratory Effort / Characteristics Respiratory Depth Respiratory Patter n Blood Pressure Blood Pressure [Ri ght Arm] Blood Pressure Annalise n Blood Pressure Annalise n [Right Arm] Blood Pressure Pos ition Pulse Oximetry 96 96 95 Oxygen Delivery Me thod Sepsis Recent Feve r Within 48 Hours Sepsis New/Unexpla ined Change in Men german Status Sepsis Action Take n by Nursing 12/19/23 11:30 Temperature Temperature Source Pulse Rate Pulse Rate [Apical ] Pulse Rate from Sp O2 Sensor Pulse Rhythm Pulse Strength Respiratory Rate Respiratory Effort / Characteristics Respiratory Depth Respiratory Patter n Blood Pressure 122/88 Blood Pressure [Ri ght Arm] Blood Pressure Annalise n 96 Blood Pressure Annalise n [Right Arm] Blood Pressure Pos ition Pulse Oximetry Oxygen Delivery Me thod Sepsis Recent Feve r Within 48 Hours Sepsis New/Unexpla ined Change in Men german Status Sepsis Action Take n by Nursing Physical Exam: Physical Exam GENERAL: Mild tremor. HENT: Exam performed. - Head: Normocephalic and atraumatic. EYES: Conjunctivae and EOM are normal. Pupils are equal, round, and reactive to light. Right eye exhibits no discharge. Left eye exhibits no discharge. No scleral icterus. NECK: Normal range of motion. Neck supple. No JVD present. CV: Tachycardic rate, regular rhythm, normal heart sounds and intact distal pulses. There is no peripheral edema. Palpable radial pulses bue. PULM/CHEST: Effort normal and breath sounds normal. No respiratory distress. No stridor. He has no wheezes. He has no rales. - Chest Wall: He exhibits no tenderness. ABD: The abdomen is soft. There is tenderness to palpation of the epigastric area. There is no rebound, no guarding, no Vargas's sign and no tenderness at McBurney's point. Rovsig negative. Rectal: Melanotic stool Hemoccult positive. MUSC/SKEL: Normal range of motion. There is no peripheral edema, tenderness or deformity. NEURO: He is alert and oriented to person, place, and time. He has normal strength. No cranial nerve deficit or sensory deficit. Coordination and gait normal. GCS eye subscore is 4. GCS verbal subscore is 5. GCS motor subscore is 6. Cerebellar tests wnl. SKIN: Skin is warm and dry. He is not diaphoretic. PSYCH: He has a normal mood and affect. Behavior is normal. Judgment and thought content normal. Course Course 0834: The patient was evaluated in room B4. A complete history and physical exam was performed Cardiac monitoring: An order was placed for continuous cardiac monitoring. The monitor shows a rate of 120 with sinus tachycardia rhythm interpreted by me Patient will be treated with IV fluids, IV Ativan, IV Zofran, IV Protonix bolus and drip given his history of sudden alcohol cessation yesterday and melanotic stool as well as reported coffee-ground emesis. Labs and CT ordered for the patient. 1115: Vital signs stable. Labs show leukocytosis 17.58 total bilirubin 2 direct bilirubin 0.3 LFTs within normal limits. CT shows no evidence of pancreatitis. Patient will be admitted for GI bleed and alcohol withdrawal to the [facility] team. Administered Medications Pantoprazole Sodium 40 mg/ (Dextrose) 100 mls @ 20 mls/hr IV Q5H FAUSTO Stop: 01/18/24 08:59 Last Admin: 12/19/23 13:54 Dose: 8 mg/hr, 20 mls/hr Documented By: Infusion: 12/19/23 13:54 Dose: Infused Documented By: Admin: 12/19/23 09:32 Dose: 8 mg/hr, 20 mls/hr Documented By: MILLIE Lactated Ringer's (Lr) 1,000 mls @ 15 mls/hr IV .Q24H FAUSTO Stop: 01/18/24 13:59 Last Infusion: 12/19/23 14:19 Dose: Infused Documented By: Admin: 12/19/23 13:53 Dose: 15 mls/hr Documented By: HARRY Discontinued Medications Fentanyl Citrate (Fentanyl Citrate Pf 100 Mcg/2 Ml Vial) 25 mcg IV Q5M PRN PRN Reason: PACU Use Only-Pain Stop: 12/19/23 22:11 Last Admin: 12/19/23 15:37 Dose: 25 mcg Documented By: Admin: 12/19/23 15:32 Dose: 25 mcg Documented By: Admin: 12/19/23 15:27 Dose: 25 mcg Documented By: Admin: 12/19/23 15:22 Dose: 25 mcg Documented By: JALYN Sodium Chloride (Nss) 1,000 mls @ 999 mls/hr IV .Q1H1M ONE Stop: 12/19/23 09:35 Last Infusion: 12/19/23 09:47 Dose: Infused Documented By: Admin: 12/19/23 08:46 Dose: 999 mls/hr Documented By: IRENE Pantoprazole Sodium 80 mg/ (Dextrose) 120 mls @ 480 mls/hr IV NOW ONE Stop: 12/19/23 08:58 Last Infusion: 12/19/23 09:18 Dose: Infused Documented By: Admin: 12/19/23 09:03 Dose: 480 mls/hr Documented By: IRENE Ioversol (Optiray 320 100ml) 94 ml IV ONCE ONE Stop: 12/19/23 09:29 Last Admin: 12/19/23 09:28 Dose: 94 ml Documented By: BASIA Lorazepam (Lorazepam 1 Mg/1 Ml Syr Ed Inj Use) 1 mg IV ONE STA Stop: 12/19/23 08:45 Last Admin: 12/19/23 08:51 Dose: 1 mg Documented By: IRENE Ondansetron HCl (Ondansetron Inj 2 Mg/Ml 2 Ml Vial) Confirm Administered Dose 4 mg .ROUTE .STK-MED ONE Stop: 12/19/23 08:51 Last Admin: 12/19/23 08:54 Dose: Not Given Documented By: IRENE Ondansetron HCl (Ondansetron Inj 2 Mg/Ml 2 Ml Vial) 4 mg IV NOW STA Stop: 12/19/23 08:51 Last Admin: 12/19/23 08:52 Dose: 4 mg Documented By: IRENE Pantoprazole Sodium (Pantoprazole Bolus/Drip) 1 each IV NOW STA Stop: 12/19/23 08:45 Last Admin: 12/19/23 09:36 Dose: Not Given Documented By: MILLIE Medical Decision Making Laboratory Data Attestation: I reviewed the patient's lab results. 12/19/23 08:22 12/19/23 08:22 Lab Results 12/19/23 12/19/23 Range/Units 08:22 08:50 WBC 17.58 H (4.8-10.8) K/ul RBC 4.94 (4.70-6.10) M/uL Hgb 15.8 (14.0-18.0) g/dl Hct 46.5 (42.0-52.0) % MCV 94.1 (80.0-100.0) fL MCH 32.0 (25.0-34.0) pg MCHC 34.0 (32.0-36.0) g/dL RDW Std Deviation 45.6 (36.4-46.3) fL RDW Coeff of Scar 13.2 (11.5-14.5) % Plt Count 214 (130-400) K/uL MPV 12.9 H (9.4-12.4) fL Immature Gran % (Auto) 0.4 % Neut % (Auto) 87.8 % Lymph % (Auto) 5.1 % [place] % (Auto) 6.1 % Eos % (Auto) 0.1 % Baso % (Auto) 0.5 % Neut # (Auto) 15.45 H (1.40-6.50) K/uL Lymph # (Auto) 0.89 L (1.20-3.40) K/uL [place] # (Auto) 1.07 H (0.11-0.59) K/uL Eos # (Auto) 0.01 (0.00-0.50) K/uL Baso # (Auto) 0.09 (0.00-0.20) K/uL Immature Gran # (Auto) 0.07 (0.01-0.20) K/uL PT 11.3 (9.0-12.0) Seconds INR 1.0 (0.9-1.1) APTT 28 (21-31) Seconds PTT Ratio 1.0 Sodium 139 (136-145) mmol/L Potassium 4.2 (3.5-5.1) mmol/L Chloride 101 (98-107) mmol/L Carbon Dioxide 30 (21-32) mmol/L Anion Gap 8 (3-11) BUN 27 H (6-23) mg/dl Creatinine 0.80 (0.6-1.4) mg/dl Est Cr Clr Drug Dosing 137.4 ml/min Est GFR ( Amer) 131.3 ml/min Est GFR (Non-Af Amer) 113.3 ml/min BUN/Creatinine Ratio 33.8 H (10-20) Glucose 121 H (70-99(Fasting)) mg/dl Calcium 9.6 (8.6-10.3) mg/dl Total Bilirubin 2.0 H (0.2-1.0) mg/dl Direct Bilirubin 0.3 H (0-0.2) mg/dl AST 27 (13-39) U/L ALT 25 (7-52) U/L Alkaline Phosphatase 66 (34-104) U/L Total Protein 7.4 (6.0-8.3) gm/dl Albumin 4.4 (3.4-5.0) gm/dl Lipase 21 (11-82) U/L Blood Type O Positive Antibody Screen NEGATIVE Imaging Data Radiologist's Impression: Abdomen/Pelvis CT 12/19/23 08:[address] WITH IV CONTRAST CT DOSE: 831.12 mGy.cm HISTORY: Acute epigastric abdominal pain epigastric pain gib etoh ro pancreatitis TECHNIQUE: Multiaxial CT images of the abdomen and pelvis were performed following the IV administration of 94 cc of Optiray, A dose lowering technique was utilized adhering to the principles of ALARA. COMPARISON STUDY: None. FINDINGS: Clear lung bases. No free air. Unremarkable spleen, pancreas, gallbladder and adrenal glands. Hepatic steatosis, most pronounced in the left hepatic lobe. Patency of the hepatic and portal veins. Unremarkable kidneys. Prostatomegaly. Pelvic base and calcifications. Partial distention of the urinary bladder. Aorta and IVC are unremarkable. No lymphadenopathy. Small hiatal hernia with mild distal esophageal wall thickening with increased distal esophageal wall thickening. The stomach is distended and debris-filled suggestive of a recent meal. No bowel obstruction or bowel wall thickening. The appendix measures up to 7 mm and appears to be noninflamed. No acute fracture. Unremarkable soft tissues. IMPRESSION: 1. Small hiatal hernia with findings suspicious for a distal esophagitis. Findings could be correlated with endoscopy. 2. No CT evidence of acute pancreatitis. 3. Hepatic steatosis. ACT 112: Negative or not required by law. The above report was generated using voice recognition software. It may contain grammatical, syntax or spelling errors. Electronically signed by: Junior Nugent M.D. 12/19/2023 10:05 AM ECG Data Attestation: I personally reviewed and interpreted this ECG as follows: Rate (beats per minute): 116 Rhythm: sinus tachycardia Findings: no ST depression, no ST elevation or no prolonged QT MDM Narrative 0834: The patient was evaluated in room B4. A complete history and physical exam was performed Cardiac monitoring: An order was placed for continuous cardiac monitoring. The monitor shows a rate of 120 with sinus tachycardia rhythm interpreted by me Patient will be treated with IV fluids, IV Ativan, IV Zofran, IV Protonix bolus and drip given his history of sudden alcohol cessation yesterday and melanotic stool as well as reported coffee-ground emesis. Labs and CT ordered for the patient. 1115: Vital signs stable. Labs show leukocytosis 17.58 total bilirubin 2 direct bilirubin 0.3 LFTs within normal limits. CT shows no evidence of pancreatitis. Patient will be admitted for GI bleed and alcohol withdrawal to the [facility] team. Impression & Plan GI bleed, Alcohol use Discharge Plan Visit Data Chief Complaint: Vomiting Stated Complaint: vomiting blood, abd pain ED Provider: Jarrett Delgado Discharge Problem: GI bleed, Alcohol use Patient Disposition: Admitted As Inpatient Discharge Instructions Interventions: ED Discharge Assessment Last Done: 12/19/23 11:50
[2023-12-19 09:04] LABS: Albumin Level 4.4 gm/dl (3.4-5.0); Bilirubin Direct 0.3 mg/dl (0-0.2); Calcium 9.6 mg/dl (8.6-10.3); Potassium 4.2 mmol/L (3.5-5.1)
[2023-12-19 09:10] LABS: BUN Creatinine Ratio 33.8 (10-20); Creatinine Clr Calc Pharmacy 137.4 ml/min; Est GFR (African American) 131.3 ml/min; Est GFR (Non-African American) 113.3 ml/min; Total Protein 7.4 gm/dl (6.0-8.3)
[2023-12-19] MEDS: OPTIRAY 320 100ml IV ONE (09:28)
[2023-12-19] MEDS: PANTOprazole 40 MG in DEXTROSE 5% MINI-B 100 ML IV SCH (09:32)
[2023-12-19] MEDS: PANTOPRAZOLE BOLUS/DRIP IV STA (09:36)
--- NOTE | 2023-12-19 10:06 | CT Scan Report ---
ABDOMEN AND PELVIS CT WITH IV CONTRAST CT DOSE: 831.12 mGy.cm HISTORY: Acute epigastric abdominal pain epigastric pain gib etoh ro pancreatitis TECHNIQUE: Multiaxial CT images of the abdomen and pelvis were performed following the IV administrat ion of 94 cc of Optiray, A dose lowering technique was utilized adhering to the principles of ALARA. COMPARISON STUDY: None. FINDINGS: Clear lung bases. No free air. Unremarkable spleen, pancreas, gallbladder and adrenal gland s. Hepatic steatosis, most pronounced in the left hepatic lobe. Patency of the hepatic and portal vei ns. Unremarkable kidneys. Prostatomegaly. Pelvic base and calcifications. Partial distention of the urina ry bladder. Aorta and IVC are unremarkable. No lymphadenopathy. Small hiatal hernia with mild distal esophageal wall thickening with increased distal esophageal wall thickening. The stomach is distended and debris-filled suggestive of a recent meal. No bowel obstruc tion or bowel wall thickening. The appendix measures up to 7 mm and appears to be noninflamed. No acu te fracture. Unremarkable soft tissues. IMPRESSION: 1. Small hiatal hernia with findings suspicious for a distal esophagitis. Findings could be correlate d with endoscopy. 2. No CT evidence of acute pancreatitis. 3. Hepatic steatosis. ACT 112: Negative or not required by law. The above report was generated using voice recognition software. It may contain grammatical, syntax o r spelling errors. Electronically signed by: Junior Nugent M.D. 12/19/2023 10:05 AM
--- NOTE | 2023-12-19 11:29 | History & Physical Report ---
Date of Service December 19, 2023 Assessment & Plan (1) GI bleed: Plan: This is a 38 y/o male with a history of mild persistent asthma who presented to the ED today with episode of bloody emesis and black stool at home, no further episodes since being in the ED. No prior history of PUD or GI bleed, no NSAID use. Does consume alcohol almost daily. Work-up in the ED shows possible distal esophagitis on the CT scan. H&H are currently normal. BUN slightly elevated at 27. - Admit to PCU - Consult GI - will keep pt NPO until evaluated for possible EGD - Continue pantoprazole gtt as started in the ED - Trend H&H (2) Mild persistent asthma without complication: Plan: Chronic, stable Continue outpatient regimen (3) Alcohol use: Plan: Last drink about 48 hours ago Start active Ativan IV protocol - deferring gabapentin protocol for now b/c pt NPO Thiamine, folic acid daily Discussed alcohol cessation recommendation with patient Plan Pt seen and reviewed with collaborating physician, Dr. Correa. Plan of care discussed and as outlined above. Code Status: Full code DVT Prophylaxis: Jose Manuel Ware PA-C History of Present Illness Chief Complaint: vomiting blood Primary Care Provider: Chadd Ulrich MD This is a 38 y/o male with a history of mild persistent asthma who presented to the ED today with episode of bloody emesis and black stool. Pt reports that yesterday he was in his usual state of health. Last night, he woke up and coughed up some blood and white mucus, which he initially thought was due to his sinuses. However, early this morning, he woke up and had a large emesis of black clots followed by a black bowel movement that appearer similar to coffee grounds. He has some associated nausea initially but this has improved with Zofran. Stomach currently just feels unsettled. No further emesis or BM. He has a history of occasional heartburn for which he takes prn Tums, which usually help. He does not take NSAIDs routinely. Denies prior history of PUD or esophagitis. He does drink ETOH almost every day, reports around 10 drinks per day. He will occasionally stop for a couple of days and denies having significant withdrawal symptoms when he does. His last drink was approximately 48 hours ago. He denies chest pain, palpitation, shortness of breath, syncope. Allergies Allergy/AdvReac Type Severity Reaction Status Date / Time No Known Allergies Allergy Verified 10/09/23 12:37 Home Medications Medication Instructions Recorded Confirmed Type budesonide 0.5 mg/2 mL suspension 0.5 mg inhalation AMPM 12/19/23 12/19/23 History for nebulization fluticasone furoate 200 1 inh inhalation QAM 12/19/23 12/19/23 History mcg-vilanterol 25 mcg/dose inhalation powder (Breo Ellipta) levocetirizine 5 mg tablet 5 mg PO QPM 12/19/23 12/19/23 History mometasone 50 mcg/actuation nasal 2 spray intranasal QAM 12/19/23 12/19/23 History spray montelukast 10 mg tablet 10 mg PO QPM 12/19/23 12/19/23 History Past Med/Surg History Medical History Mild persistent asthma without complication Surgical History History of sinus surgery Social History (Updated 12/19/23 @ 09:00 by Jarrett Delgado MD) Smoking Status: Former smoker Smoking End Date: 4 years ago; Hx Alcohol Use: Yes Alcohol type: hard liquor and other Alcohol Intake Frequency Comment: 9-10 drinks day vodka and white claw Hx Substance Use: No Preferred Language: Georgian Communication Ability: Effective Cathead Worker Required: No Beliefs That Will Affect Care: None Current Living Situation: Spouse Other Information That Helps Us Care for You: No Feels Safe at Home: Yes Safety Concerns: Feels Safe At This Time Assistive Devices: None Review of Systems Review of Systems: All systems reviewed & are unremarkable except as noted in HPI & below Constitutional: no fever and no chills Eyes: no diplopia Ear, Nose, Mouth, Throat: no nasal congestion and no sore throat Respiratory: no dyspnea and no wheezing Cardiovascular: no chest pain, no palpitations and no syncope Gastrointestinal: as per Subjective / HPI Genitourinary: no dysuria or no hematuria Musculoskeletal: no back pain and no neck pain Integumentary: no rash and no yellowing of the skin Neurologic: no headache(s) and no confusion Physical Exam Physical Exam: General: awake, alert, NAD HEENT: no scleral icturus, moist oral mucosa Neck: trachea midline Heart: regular but tachycardic in the 120s Lungs: CTA bilaterally, no W/R/R Abdomen: soft, NT, +BS Extremities: no pedal edema, distal pulses intact and equal Neurologic: Ox3, moving all extremities, no focal deficits, no confusion, no dysarthria, no tremor noted in hands at present Skin: no pallor or jaundice Results & Data Results & Data Vital Signs (Past 12 Hours) Vital Signs Temp Pulse Pulse Resp BP BP Pulse Ox 12/19/23 10:10 127 H 15 139/95 96 12/19/23 08:39 94 12/19/23 08:25 120 H 20 120/91 94 12/19/23 08:12 36.3 C L 131 H 18 131/93 96 O2 Del Method 12/19/23 10:10 Room Air 12/19/23 08:39 Room Air 12/19/23 08:25 Room Air 12/19/23 08:12 Room Air Laboratory Results Laboratory Results - last 24 hr 12/19/23 12/19/23 08:22 08:50 WBC 17.58 H RBC 4.94 Hgb 15.8 Hct 46.5 MCV 94.1 MCH 32.0 MCHC 34.0 RDW Std Deviation 45.6 RDW Coeff of Scar 13.2 Plt Count 214 MPV 12.9 H Immature Gran % (Auto) 0.4 Neut % (Auto) 87.8 Lymph % (Auto) 5.1 [place] % (Auto) 6.1 Eos % (Auto) 0.1 Baso % (Auto) 0.5 Neut # (Auto) 15.45 H Lymph # (Auto) 0.89 L [place] # (Auto) 1.07 H Eos # (Auto) 0.01 Baso # (Auto) 0.09 Immature Gran # (Auto) 0.07 PT 11.3 INR 1.0 APTT 28 PTT Ratio 1.0 Sodium 139 Potassium 4.2 Chloride 101 Carbon Dioxide 30 Anion Gap 8 BUN 27 H Creatinine 0.80 Est Cr Clr Drug Dosing 137.4 Est GFR ( Amer) 131.3 Est GFR (Non-Af Amer) 113.3 BUN/Creatinine Ratio 33.8 H Glucose 121 H Calcium 9.6 Total Bilirubin 2.0 H Direct Bilirubin 0.3 H AST 27 ALT 25 Alkaline Phosphatase 66 Total Protein 7.4 Albumin 4.4 Lipase 21 Blood Type O Positive Antibody Screen NEGATIVE Diagnostic Findings Abdomen/Pelvis CT 12/19/23 08:[address] WITH IV CONTRAST CT DOSE: 831.12 mGy.cm HISTORY: Acute epigastric abdominal pain epigastric pain gib etoh ro pancreatitis TECHNIQUE: Multiaxial CT images of the abdomen and pelvis were performed following the IV administration of 94 cc of Optiray, A dose lowering technique was utilized adhering to the principles of ALARA. COMPARISON STUDY: None. FINDINGS: Clear lung bases. No free air. Unremarkable spleen, pancreas, gallbladder and adrenal glands. Hepatic steatosis, most pronounced in the left hepatic lobe. Patency of the hepatic and portal veins. Unremarkable kidneys. Prostatomegaly. Pelvic base and calcifications. Partial distention of the urinary bladder. Aorta and IVC are unremarkable. No lymphadenopathy. Small hiatal hernia with mild distal esophageal wall thickening with increased distal esophageal wall thickening. The stomach is distended and debris-filled suggestive of a recent meal. No bowel obstruction or bowel wall thickening. The appendix measures up to 7 mm and appears to be noninflamed. No acute fracture. Unremarkable soft tissues. IMPRESSION: 1. Small hiatal hernia with findings suspicious for a distal esophagitis. Findings could be correlated with endoscopy. 2. No CT evidence of acute pancreatitis. 3. Hepatic steatosis. ACT 112: Negative or not required by law. The above report was generated using voice recognition software. It may contain grammatical, syntax or spelling errors. Electronically signed by: Junior Nugent M.D. 12/19/2023 10:05 AM Medications Administered Pantoprazole Sodium 40 mg/ (Dextrose) 100 mls @ 20 mls/hr IV Q5H FAUSTO Stop: 01/18/24 08:59 Last Admin: 12/19/23 09:32 Dose: 8 mg/hr, 20 mls/hr Documented By: MILLIE Discontinued Medications Sodium Chloride (Nss) 1,000 mls @ 999 mls/hr IV .Q1H1M ONE Stop: 12/19/23 09:35 Last Infusion: 12/19/23 09:47 Dose: Infused Documented By: Admin: 12/19/23 08:46 Dose: 999 mls/hr Documented By: IRENE Pantoprazole Sodium 80 mg/ (Dextrose) 120 mls @ 480 mls/hr IV NOW ONE Stop: 12/19/23 08:58 Last Infusion: 12/19/23 09:18 Dose: Infused Documented By: Admin: 12/19/23 09:03 Dose: 480 mls/hr Documented By: IRENE Ioversol (Optiray 320 100ml) 94 ml IV ONCE ONE Stop: 12/19/23 09:29 Last Admin: 12/19/23 09:28 Dose: 94 ml Documented By: BASIA Lorazepam (Lorazepam 1 Mg/1 Ml Syr Ed Inj Use) 1 mg IV ONE STA Stop: 12/19/23 08:45 Last Admin: 12/19/23 08:51 Dose: 1 mg Documented By: IRENE Ondansetron HCl (Ondansetron Inj 2 Mg/Ml 2 Ml Vial) Confirm Administered Dose 4 mg .ROUTE .STK-MED ONE Stop: 12/19/23 08:51 Last Admin: 12/19/23 08:54 Dose: Not Given Documented By: IRENE Ondansetron HCl (Ondansetron Inj 2 Mg/Ml 2 Ml Vial) 4 mg IV NOW STA Stop: 12/19/23 08:51 Last Admin: 12/19/23 08:52 Dose: 4 mg Documented By: IRENE Pantoprazole Sodium (Pantoprazole Bolus/Drip) 1 each IV NOW STA Stop: 12/19/23 08:45 Last Admin: 12/19/23 09:36 Dose: Not Given Documented By: MILLIE Supervising Physician Co-Signing Physician Notes Pt was seen and examined by myself, Emmie Correa MD on the day of service. Care was coordinated with Mirtha Ware PA-C. 38yoM with hx of chronic alcohol use presenting with 1 day of coffee ground emesis and melena. States last drink was 2 days ago. No further episodes of emesis or melena yet in the ED. On exam alert, oriented in no acute distress. HR tachycardic on exam, abdomen soft, nontender. Hematemesis/Melena/Esophagitis- esophagitis noted on CT abd/pelvis, GI consult, hgb currently stable- trend h/h, transfuse as needed, continue PPI drip at this time, adjust per GI recs. Hiatal hernia- noted on CT abd/pelvis, continue ppi, appreciate GI recs Indirect hyperbilirubinemia- t bili elevated at 2.0 with direct bili of 0.3. GI consulted, appreciate further recs Hyperglycemia-glucose elevated at 121. AM hgba1c pending Sinus tachycardia- noted on EKG, likely in setting of acute blood loss, possibly related to withdrawal. continue to monitor on tele. Echo pending. AWSS protocol, address bleeding per GI. Prostatomegaly- noted on CT abd/pelvis. PCP/Urology f/u outpt Otherwise as above. I spent a total [id number] coordinating, documenting, and providing care for this patient excluding time spent in the performance of separately billed services (1) GI bleed GI bleed type/associated pathology: melena Qualified Code(s): K92.1 - Melena
--- NOTE | 2023-12-19 12:47 | Gastrointestinal Consultation ---
Date of Consultation December 19, 2023 Assessment & Plan (1) Coffee ground emesis: Patient with sudden onset coffee ground emesis and melena this morning. Discussed case with Dr. Shultz. - set patient up for an EGD for today. - Keep NPO. Last drink was 7:30 am. He had a glass of water at the time. - continue with protonix drip. Supervising Physician Co-Signing Physician Notes Agree with KAREN Beach as above Abd: Soft, NT, ND, +BS Continue current therapy and supportive care Proceed with EGD now for further evaluation History of Present Illness Reason for Consultation: GIB Requesting Physician: Mirtha Mcfarland PA-C Attending Physician: Emmie Correa MD History of Present Illness Patient is a 38 year old male who presented to the ED this morning with complaints of sudden onset of vomiting coffee ground emesis this morning. He tells me that he had about 5-6 episodes of this. He tells me it was all dark material. he also developed new onset melena this morning. His stools were tested and found to be heme positive in the ED. He denies any nsaid use. He does use alcohol frequently and tells me he typically has about 10 drinks a day whether that is a seltzer or vodka drink. He denies any heartburn. he has never had a colonoscopy or egd. He tells me that he was in his usual state of health up until yesterday when he was noticing some bloating and epigastric discomfort, but he had blamed this on what he had ate for Easter. He has felt somewhat better since coming to the ED. no further emesis. Last oral intake was 730am today, he tells me this was just a glass of water. Last food was yesterday. 12/19/23 Hgb 15.8. Allergies Allergy/AdvReac Type Severity Reaction Status Date / Time No Known Allergies Allergy Verified 10/09/23 12:37 Home Medications Medication Instructions Recorded Confirmed Type budesonide 0.5 mg/2 mL suspension 0.5 mg inhalation AMPM 12/19/23 12/19/23 History for nebulization fluticasone furoate 200 1 inh inhalation QAM 12/19/23 12/19/23 History mcg-vilanterol 25 mcg/dose inhalation powder (Breo Ellipta) levocetirizine 5 mg tablet 5 mg PO QPM 12/19/23 12/19/23 History mometasone 50 mcg/actuation nasal 2 spray intranasal QAM 12/19/23 12/19/23 History spray montelukast 10 mg tablet 10 mg PO QPM 12/19/23 12/19/23 History Patient History Medical History Mild persistent asthma without complication Surgical History History of sinus surgery Social History (Updated 12/19/23 @ 09:00 by Jarrett Delgado MD) Smoking Status: Never smoker Hx Alcohol Use: Yes Alcohol Intake Frequency Comment: 9-10 drinks day vodka and white claw Preferred Language: Sri Lankan Feels Safe at Home: Yes Review of Systems Review of Systems: All systems reviewed & are unremarkable except as noted in HPI & below Physical Exam Constitutional: WD/WN, vitals as above Respiratory: normal respiratory effort, lungs clear to auscultation Cardiovascular: RRR, no murmur, no edema Gastrointestinal (Abdomen): normal bowel sounds, soft, nontender, no hepatosplenomegaly Psychiatric: Orientation: alert and oriented x 3 Affect: euthymic affect Results & Data Vital Signs (Past 12 Hours) Vital Signs Temp Pulse Pulse Resp BP BP Pulse Ox 12/19/23 12:22 135 H 20 96 12/19/23 12:10 121 H 19 95 12/19/23 12:00 120/95 12/19/23 12:00 121 H 17 95 12/19/23 11:50 128 H 16 98 12/19/23 11:40 124 H 20 96 12/19/23 11:30 122/88 12/19/23 11:30 118 H 19 95 12/19/23 11:20 119 H 19 96 12/19/23 11:10 121 H 17 96 12/19/23 11:00 125 H 20 95 12/19/23 11:00 120/89 12/19/23 10:50 124 H 17 95 12/19/23 10:40 113 H 23 95 12/19/23 10:30 140/89 12/19/23 10:30 119 H 28 H 97 12/19/23 10:20 127 H 20 94 12/19/23 10:10 117 H 17 94 12/19/23 10:10 127 H 15 139/95 96 12/19/23 10:00 139/95 12/19/23 10:00 113 H 17 95 12/19/23 09:50 114 H 16 95 12/19/23 09:40 121 H 15 95 12/19/23 09:36 108 H 16 95 12/19/23 09:10 117 H 16 95 12/19/23 09:00 110 H 20 94 12/19/23 09:00 125/95 12/19/23 08:50 120 H 21 95 12/19/23 08:40 112 H 23 95 12/19/23 08:39 94 12/19/23 08:30 120 H 17 94 12/19/23 08:30 127/100 12/19/23 08:25 120 H 20 120/91 94 12/19/23 08:23 116 H 16 96 12/19/23 08:23 120/91 12/19/23 08:20 126 H 22 12/19/23 08:12 97.3 F L 131 H 18 131/93 96 O2 Del Method 12/19/23 12:22 12/19/23 12:10 12/19/23 12:00 12/19/23 12:00 12/19/23 11:50 12/19/23 11:40 12/19/23 11:30 12/19/23 11:30 12/19/23 11:20 12/19/23 11:10 12/19/23 11:00 12/19/23 11:00 12/19/23 10:50 12/19/23 10:40 12/19/23 10:30 12/19/23 10:30 12/19/23 10:20 12/19/23 10:10 12/19/23 10:10 Room Air 12/19/23 10:00 12/19/23 10:00 12/19/23 09:50 12/19/23 09:40 12/19/23 09:36 12/19/23 09:10 12/19/23 09:00 12/19/23 09:00 12/19/23 08:50 12/19/23 08:40 12/19/23 08:39 Room Air 12/19/23 08:30 12/19/23 08:30 12/19/23 08:25 Room Air 12/19/23 08:23 12/19/23 08:23 12/19/23 08:20 12/19/23 08:12 Room Air Coding Level of Care Code 09246 OFFICE CONSULT LVL M Diagnoses Coffee ground emesis K92.0
[2023-12-19] MEDS ORDERED: Ativan IV Alcohol Withdrawal--Active Protocol IV PRN (13:10)
[2023-12-19] MEDS ORDERED: LORazepam 3 MG in SYRINGE 1.5 ML IV PRN (13:10)
[2023-12-19] MEDS: LACTATED RINGER'S 1,000 ML IV SCH (13:53)
[2023-12-19] MEDS ORDERED: ATROPINE SULFATE 0.1 MG/ML 10ML SYR IV PRN (14:11)
[2023-12-19] MEDS ORDERED: ONDANSETRON INJ 2 MG/ML 2 ML VIAL IV PRN (14:11)
[2023-12-19] MEDS ORDERED: ePHEDrine sulfate 50 MG/ML AMP IV PRN (14:11)
--- NOTE | 2023-12-19 14:11 | Anesthesiology Consultation ---
Date of Service December 19, 2023 Assessment & Plan ASA ASA3 Proposed Anesthesia Anesthesia Type: General Risk / Benefits Reviewed With: PT / POA / Parent / Guardian, Accepts Plan and Informed Consent Obtained History Surgery Operation Date: 12/19/23 10:40 Proposed Procedures p Esophagogastroduodenoscopy - Fady Shultz DO Height/Weight Height: 6 ft Weight: 80.1 kg Allergies Allergy/AdvReac Type Severity Reaction Status Date / Time No Known Allergies Allergy Verified 10/09/23 12:37 Medications Home Medications Medication Instructions Recorded Confirmed Last Taken budesonide 0.5 mg/2 mL suspension 0.5 mg inhalation AMP 12/19/23 12/19/23 Unknown for nebulization fluticasone furoate 200 1 inh inhalation QA 12/19/23 12/19/23 Unknown mcg-vilanterol 25 mcg/dose inhalation powder (Breo Ellipta) levocetirizine 5 mg tablet 5 mg PO QPM 12/19/23 12/19/23 Unknown mometasone 50 mcg/actuation nasal 2 spray intranasal QA 12/19/23 12/19/23 Unknown spray montelukast 10 mg tablet 10 mg PO QPM 12/19/23 12/19/23 Unknown Active Medications Generic Name Dose Route Start Last Admin Trade Name Freq PRN Reason Stop Dose Admin Pantoprazole Sodium 40 mg/ 100 mls @ 20 mls/hr 12/19/23 09:00 12/19/23 13:54 Dextrose IV 01/18/24 08:59 8 mg/hr Q5H FAUSTO 20 mls/hr Administration 8 MG/HR Lactated Ringer's 1,000 mls @ 15 mls/hr 12/19/23 14:00 12/19/23 13:53 Lr IV 01/18/24 13:59 15 mls/hr .Q24H FAUSTO Administration NPO Date Last Intake of Fluids: 12/19/23 Time Last Intake of Fluids: 07:30 Date Last Intake of Solids: 12/18/23 Time Last Intake of Solids: 17:00 Past Medical History Medical History Mild persistent asthma without complication Exercise / Class Metabolic Activity II 4-5 Yardwork/Stairs/Walk up hill Past Surgical History Surgical History History of sinus surgery Past Anesthesia History No Hx of Anesthesia Complications and No Family Hx of Anesthesia Complications History of PONV No Hx of PONV and No Hx of Motion Sickness Social History Smoking Status: Never smoker Hx Alcohol Use: Yes Review of Systems denies fever/cough/ colds/ chest pain/ SOB/ ED denies ED Physical Exam Vital Signs Last Vital Signs Temp 37.2 C 12/19/23 13:44 Pulse 143 H 12/19/23 13:44 Resp 18 12/19/23 13:44 BP 101/86 12/19/23 13:44 Pulse Ox 96 12/19/23 13:44 O2 Del Method Room Air 12/19/23 13:44 ENMT Mouth: no TMJ abnormality and no dentition abnormality Thyromental Distance: > or= 3.5 Finger Breadths Mallampati Class: II Neck neck extension not limited Respiratory normal respiratory effort; no respiratory distress Auscultation: lungs clear to auscultation bilaterally Cardiovascular Rate/Rhythm: regular rate and regular rhythm Neurologic moves all extremities Psychiatric Orientation: alert and oriented x 3 Testing Laboratory Results 12/19/23 08:22 12/19/23 08:22 PT 11.3 Seconds (9.0-12.0) 12/19/23 08:22 INR 1.0 (0.9-1.1) 12/19/23 08:22 APTT 28 Seconds (21-31) 12/19/23 08:22 Blood Type O Positive 12/19/23 08:50 Antibody Screen NEGATIVE 12/19/23 08:50
[2023-12-19] MEDS ORDERED: MIDAZOLAM HCL 1 MG/ML 2ML VIAL ONE (14:13)
[2023-12-19] MEDS ORDERED: fentaNYL citrate PF 100 MCG/2 ML VIAL ONE (14:13)
[2023-12-19] MEDS ORDERED: PROPOFOL IV EMULSION 10 MG/ML 20 ML VIAL IV ONE ×2 (14:33→14:53)
[2023-12-19] MEDS ORDERED: ONDANSETRON INJ 2 MG/ML 2 ML VIAL ONE (14:33)
[2023-12-19] MEDS ORDERED: SUCCINYLCHOLINE CHLORIDE 20 MG/ML 10 ML VIAL IV ONE (14:33)
[2023-12-19] MEDS ORDERED: LIDOCAINE 2% 2 ML VIAL/AMP(20MG/ML) INFIL ONE (14:33)
[2023-12-19] MEDS ORDERED: METOCLOPRAMIDE HCL INJ 5 MG/ML 2 ML VIAL ONE (14:33)
[2023-12-19] MEDS ORDERED: ESMOLOL HCL INJ 10 MG/ML 10ML VIAL IV ONE (14:42)
[2023-12-19] MEDS: fentaNYL citrate PF 100 MCG/2 ML VIAL IV PRN (15:22)
--- NOTE | 2023-12-19 15:25 | GI REPORT ---
Patient Name: Fransico Quinn Procedure Date: 12/19/2023 1:14 PM Date of : 1985 Admit Type: Inpatient Age: 38 Gender: Male Attending MD: Fady Shultz DO, Procedure: Upper GI endoscopy Providers: Fady Shultz DO Referring MD: Emmie Correa MD Indications: Hematemesis Medicines: General Anesthesia Complications: No immediate complications. Estimated Blood Loss: Estimated blood loss: none. Procedure: Pre-Anesthesia Assessment: - Prior to the procedure, a History and Physical was performed, and patient medications and allergies were reviewed. The patient's tolerance of previous anesthesia was also reviewed. The risks and benefits of the procedure and the sedation options and risks were discussed with the patient. All questions were answered, and informed consent was obtained. Prior Anticoagulants: The patient has taken no anticoagulant or antiplatelet agents. ASA Grade Assessment: III - A patient with severe systemic disease. After reviewing the risks and benefits, the patient was deemed in satisfactory condition to undergo the procedure. After obtaining informed consent, the endoscope was passed under direct vision. Throughout the procedure, the patient's blood pressure, pulse, and oxygen saturations were monitored continuously. The Endoscope was introduced through the mouth, and advanced to the second part of duodenum. The upper GI endoscopy was accomplished without difficulty. The patient tolerated the procedure well. Findings: Red blood was found in the entire esophagus. A 8 mm bleeding Renae-Mann tear with stigmata of recent bleeding was found. Area was unsuccessfully injected with 3 mL of a 0.1 mg/mL solution of epinephrine for hemostasis. To repair the defect, the tissue edges were approximated and three hemostatic clips were successfully placed (MR conditional). Closure of the defect was successful. Clip offshore diver: Harir. There was no bleeding at the end of the procedure. Clotted blood was found in the entire examined stomach. Hematin (altered blood/ydxtgc-gezihz-fuwl material) was found in the entire duodenum. Impression: - Red blood in the esophagus. - Renae-Mann tear. Treatment not successful. Clips (MR conditional) were placed. Clip offshore diver: Harir. - Clotted blood in the entire stomach. - Blood in the entire examined duodenum. - No specimens collected. Recommendation: - Ad[facility] the patient [facility] care. - Clear liquid diet. - Use Protonix (pantoprazole) 40 mg IV BID. Fady Garcia Case, DO 12/19/2023 3:25:11 PM This report has been signed electronically. Note Initiated On: 12/19/2023 1:14 PM Number of Addenda: 0 I attest to the content of the Intraoperative Record and orders documented therein, exceptions below {[id number]}
--- NOTE | 2023-12-19 15:53 | Anesthesiology Progress Note ---
Date of Service December 19, 2023 Anesthesia Post Procedure Vital Signs Vital Signs: Temp Pulse Pulse Resp BP BP BP 12/19/23 15:45 127 H 16 117/86 12/19/23 15:35 133 H 16 129/100 12/19/23 15:25 133 H 15 134/99 12/19/23 15:15 36.2 C L 143 H 17 149/82 H 12/19/23 13:44 37.2 C 143 H 18 101/86 12/19/23 12:22 135 H 20 12/19/23 12:10 121 H 19 12/19/23 12:00 120/95 12/19/23 12:00 121 H 17 12/19/23 11:50 128 H 16 12/19/23 11:40 124 H 20 12/19/23 11:30 122/88 12/19/23 11:30 118 H 19 12/19/23 11:20 119 H 19 12/19/23 11:10 121 H 17 12/19/23 11:00 125 H 20 12/19/23 11:00 120/89 12/19/23 10:50 124 H 17 12/19/23 10:40 113 H 23 12/19/23 10:30 140/89 12/19/23 10:30 119 H 28 H 12/19/23 10:20 127 H 20 12/19/23 10:10 117 H 17 12/19/23 10:10 127 H 15 139/95 12/19/23 10:00 139/95 12/19/23 10:00 113 H 17 12/19/23 09:50 114 H 16 12/19/23 09:40 121 H 15 12/19/23 09:36 108 H 16 12/19/23 09:10 117 H 16 12/19/23 09:00 110 H 20 12/19/23 09:00 125/95 12/19/23 08:50 120 H 21 12/19/23 08:40 112 H 23 12/19/23 08:39 12/19/23 08:30 120 H 17 12/19/23 08:30 127/100 12/19/23 08:25 120 H 20 120/91 12/19/23 08:23 116 H 16 12/19/23 08:23 120/91 12/19/23 08:20 126 H 22 12/19/23 08:12 36.3 C L 131 H 18 131/93 Pulse Ox O2 Del Method 12/19/23 15:45 92 Room Air 12/19/23 15:35 94 Room Air 12/19/23 15:25 94 Room Air 12/19/23 15:15 98 Room Air 12/19/23 13:44 96 Room Air 12/19/23 12:22 96 12/19/23 12:10 95 12/19/23 12:00 12/19/23 12:00 95 12/19/23 11:50 98 12/19/23 11:40 96 12/19/23 11:30 12/19/23 11:30 95 12/19/23 11:20 96 12/19/23 11:10 96 12/19/23 11:00 95 12/19/23 11:00 12/19/23 10:50 95 12/19/23 10:40 95 12/19/23 10:30 12/19/23 10:30 97 12/19/23 10:20 94 12/19/23 10:10 94 12/19/23 10:10 96 Room Air 12/19/23 10:00 12/19/23 10:00 95 12/19/23 09:50 95 12/19/23 09:40 95 12/19/23 09:36 95 12/19/23 09:10 95 12/19/23 09:00 94 12/19/23 09:00 12/19/23 08:50 95 12/19/23 08:40 95 12/19/23 08:39 94 Room Air 12/19/23 08:30 94 12/19/23 08:30 12/19/23 08:25 94 Room Air 12/19/23 08:23 96 12/19/23 08:23 12/19/23 08:20 12/19/23 08:12 96 Room Air Pain Intensity Abdomen: Pain Intensity: 4 Transfer of Care Handoff Completed per policy Notes Mental Status: alert / awake / arousable and participated in evaluation Patient Amnestic to Procedure: Yes Nausea / Vomiting: adequately controlled Pain: adequately controlled Airway Patency, RR, SpO2: stable & adequate BP & HR: stable & adequate Hydration State: stable & adequate Anesthetic Complications: no major complications apparent and Pt Satisfied with anesthetic care
[2023-12-19] MEDS: LORazepam 1 MG in SYRINGE 0.5 ML IV PRN (19:32)
[2023-12-19] MEDS: THIAMINE HCL 100 MG in SYRINGE 9 ML IV SCH (19:36)
[2023-12-19] MEDS: FOLIC ACID 1 MG in SYRINGE 9.8 ML IV SCH (19:37)
[2023-12-19] MEDS: CETIRIZINE HCL 10 MG TABLET PO SCH (19:40)
[2023-12-19] MEDS: MONTELUKAST SODIUM 10 MG TABLET PO SCH (19:40)
[2023-12-19 20:17] LABS: Hematocrit (blood only) 32.9 % (42.0-52.0); Hemoglobin 11.5 g/dl (14.0-18.0)
[2023-12-19] MEDS: SODIUM CHLORIDE 0.9% 1,000 ML IV SCH (23:58)
[2023-12-20 00:47] LABS: Hematocrit (blood only) 32.4 % (42.0-52.0); Hemoglobin 10.9 g/dl (14.0-18.0)
[2023-12-20 05:24] LABS: Albumin Level 3.1 gm/dl (3.4-5.0); Bilirubin Direct 0.3 mg/dl (0-0.2); Bilirubin,Total 1.6 mg/dl (0.2-1.0); Calcium 7.8 mg/dl (8.6-10.3); Creatinine Clr Calc Pharmacy 142.8 ml/min; Est GFR (African American) 133.4 ml/min; Est GFR (Non-African American) 115.1 ml/min; Potassium 3.3 mmol/L (3.5-5.1); Total Protein 5.3 gm/dl (6.0-8.3)
[2023-12-20 05:40] LABS: Basophils # (auto) 0.03 K/uL (0.00-0.20); Basophils % (auto) 0.5 %; Eosinophils % (auto) 1.6 %; Hematocrit (blood only) 31.8 % (42.0-52.0); Hemoglobin 10.8 g/dl (14.0-18.0); Immature Granulocytes # (auto) 0.02 K/uL (0.01-0.20); Immature Granulocytes % (auto) 0.3 %; Lymphocytes # (auto) 1.22 K/uL (1.20-3.40); Lymphocytes % (auto) 20.1 %; Mean Corpuscular Hemoglobin 32.4 pg (25.0-34.0); Mean Corpuscular Volume 95.5 fL (80.0-100.0); Mean Platelet Volume 13.1 fL (9.4-12.4); Monocytes # (auto) 0.45 K/uL (0.11-0.59); Monocytes % (auto) 7.4 %; Neutrophils # (auto) 4.26 K/uL (1.40-6.50); Neutrophils % (auto) 70.1 %; Platelet Count 128 K/uL (130-400); RDW Coefficient of Variation 13.3 % (11.5-14.5); RDW Standard Deviation 46.5 fL (36.4-46.3); Red Blood Count 3.33 M/uL (4.70-6.10); White Blood Count 6.08 K/ul (4.8-10.8)
[2023-12-20 07:05] LABS: Estimated Average Glucose 94 mg/dl; Hemoglobin A1C 4.9 % (4.5-5.6)
[2023-12-20] MEDS: FLUTICASONE/VILANTEROL 200/25MCG 14 PUFFS/INHALER INH SCH (08:04)
[2023-12-20] MEDS: FLUTICASONE PROPIONATE NA SPR 16 GM BTL SCH (08:04)
[2023-12-20] MEDS: PANTOprazole 40 MG in SYRINGE 0 ML IV SCH (08:05)
[2023-12-20] MEDS: POTASSIUM CHLORIDE PWD 20 MEQ PACK PO SCH (08:16)
[2023-12-20 08:30] LABS: Hematocrit (blood only) 32.2 % (42.0-52.0); Hemoglobin 11.1 g/dl (14.0-18.0)
[2023-12-20] MEDS ORDERED: chlordiazePOXIDE ALCOHOL WITHDRAWL 50MG PO STA (09:11)
--- NOTE | 2023-12-20 11:12 | Hospitalist Progress Note ---
Date of Service December 20, 2023 Assessment & Plan (1) GI bleed: (2) Mild persistent asthma without complication: (3) Alcohol use: Plan Mr. Quinn is a 38 year old male with a history of mild persistent asthma who presented to the ED 12/18 with episode of bloody emesis and black stool at home. No prior history of PUD or GI bleed, no NSAID use. Does consume alcohol almost daily. EGD performed on 12/18 revealed Sage Mann tear with clear stigmata of bleeding. #Acute blood loss anemia, 2/2 GIB #Sage Mann tear Hgb 15 on admission now 11 -EGD on admission with sage mann tear, s/p 3 hemostatic clip -GI Following -CLD -PPI BID -Appreciate further recommendations -Continue IVF 125 while on CLD -Monitor Hgb q12 today, transfuse <7 #Tachycardia likely multifactorial 2/2 GIB and alcohol withdrawal Monitor on tele #Alcohol withdrawal Last drink about 12/17 evening Start active Ativan IV protocol Libirum taper Thiamine, folic acid daily Discussed alcohol cessation recommendation with patient # Mild persistent asthma without complication: Chronic, stable Continue outpatient regimen DVT SCDs Continue monitor on PCU Admission and Anticipated Discharge Date Admission Date: December 19, 2023 Subjective NAEO Denies any nausea, vomiting, abdominal pain Drinks about 10 beverages daily--last drink about 3 days prior Physical Exam Constitutional: withdrawn, tired Respiratory: normal respiratory effort, lungs clear to auscultation Cardiovascular: tachcyardic Results & Data Results & Data Vital Signs (Past 12 Hours) Vital Signs Temp Pulse Resp BP Pulse Ox O2 Del Method 12/20/23 09:00 120 H 24 12/20/23 08:02 37 C 12/20/23 08:00 111 H 37 H 93 Room Air 12/20/23 07:54 109/73 12/20/23 07:54 111 H 33 H 95 12/20/23 07:00 108 H 16 93 12/20/23 00:52 36.8 C 12/20/23 00:00 119/78 12/20/23 00:00 110 H 13 95 12/19/23 23:50 105 H 13 96 12/19/23 23:40 108 H 12 95 12/19/23 23:30 108 H 13 95 12/19/23 23:20 109 H 13 95 12/19/23 23:10 105 H 13 98 Laboratory Results Short CBC 12/19/23 12/20/23 12/20/23 Range/Units 19:23 00:37 04:03 WBC 6.08 D (4.8-10.8) K/ul Hgb 11.5 L D 10.9 L 10.8 L (14.0-18.0) g/dl Hct 32.9 L 32.4 L 31.8 L (42.0-52.0) % Plt Count 128 L (130-400) K/uL 12/20/23 Range/Units 08:01 WBC (4.8-10.8) K/ul Hgb 11.1 L (14.0-18.0) g/dl Hct 32.2 L (42.0-52.0) % Plt Count (130-400) K/uL BMP 12/20/23 04:03 Sodium 137 Potassium 3.3 L D Chloride 105 Carbon Dioxide 27 BUN 20 Creatinine 0.77 Glucose 87 Calcium 7.8 L Liver Function 12/20/23 Range/Units 04:03 Total Bilirubin 1.6 H (0.2-1.0) mg/dl Direct Bilirubin 0.3 H (0-0.2) mg/dl AST 15 (13-39) U/L ALT 14 (7-52) U/L Alkaline Phosphatase 41 (34-104) U/L Albumin 3.1 L (3.4-5.0) gm/dl Medications Administered Home Medications Medication Instructions Recorded Confirmed Last Taken budesonide 0.5 mg/2 mL suspension 0.5 mg inhalation [facility] 12/19/23 12/19/23 Unknown for nebulization fluticasone furoate 200 1 inh inhalation [facility] 12/19/23 12/19/23 Unknown mcg-vilanterol 25 mcg/dose inhalation powder (Breo Ellipta) levocetirizine 5 mg tablet 5 mg PO QPM 12/19/23 12/19/23 Unknown mometasone 50 mcg/actuation nasal 2 spray intranasal [facility] 12/19/23 12/19/23 Unknown spray montelukast 10 mg tablet 10 mg PO QPM 12/19/23 12/19/23 Unknown Active Medications Generic Name Dose Route Start Last Admin Trade Name Freq PRN Reason Stop Dose Admin Cetirizine HCl 10 mg 12/19/23 21:00 12/19/23 19:40 Cetirizine Hcl 10 Mg Tablet PO 01/18/24 20:59 10 mg QPM FAUSTO Administration Fluticasone Propionate 2 sprays 12/20/23 09:00 12/20/23 08:04 Fluticasone Propionate Na Spr 16 Gm Btl NA 01/19/24 08:59 2 sprays QAM FAUSTO Administration Fluticasone/Vilanterol 1 puffs 12/20/23 09:00 12/20/23 08:04 Fluticasone/Vilanterol 200/25mcg 14 Puffs/Inhaler INH 01/19/24 08:59 1 puffs QAM FAUSTO Administration Thiamine HCl 100 mg/ Syringe 10 mls @ 2 mls/min 12/19/23 13:15 12/20/23 08:06 IV 01/18/24 13:14 2 mls/min QAM FAUSTO Administration Folic Acid 1 mg/ Syringe 10 mls @ 5 mls/min 12/19/23 13:15 12/20/23 08:06 IV 01/18/24 13:14 5 mls/min QAM FAUSTO Administration Lorazepam 1 mg/ Syringe 1 mls @ 2 mls/min 12/19/23 13:10 12/20/23 03:24 IV 01/18/24 13:09 2 mls/min UD PRN Administration EtOH Withdrawal AWSS Score 6,7 Protocol Pantoprazole Sodium 40 mg/ 10 mls @ 5 mls/min 12/20/23 09:00 12/20/23 08:05 Syringe IV 01/19/24 08:59 5 mls/min BID FAUSTO Administration Sodium Chloride 1,000 mls @ 125 mls/hr 12/19/23 23:30 12/20/23 08:03 Nss IV 01/18/24 23:29 125 mls/hr .Q8H FAUSTO Administration Montelukast Sodium 10 mg 12/19/23 21:00 12/19/23 19:40 Montelukast Sodium 10 Mg Tablet PO 01/18/24 20:59 10 mg QPM FAUSTO Administration Potassium Chloride 40 meq 12/20/23 09:00 12/20/23 08:16 Potassium Chloride Pwd 20 Meq Pack PO 01/19/24 08:59 40 meq QAM FAUSTO Administration
[2023-12-20] MEDS: chlordiazePOXIDE HCl 25 MG CAP PO SCH ×2 (11:30→11:31)
--- NOTE | 2023-12-20 11:57 | Gastroenterology Progress Note ---
Date of Service December 20, 2023 Assessment & Plan (1) Alcohol use: (2) GI bleed: (3) Coffee ground emesis: Plan - continue with protonix 40mg IV bid. - continue with clear liquid diet. - continue to follow hgb/hct. transfuse as needed. hgb stable at this time. - recommended working on cessation of ETOH use. Admission and Anticipated Discharge Date Admission Date: December 19, 2023 Supervising Physician Co-Signing Physician Notes Agree with KAREN Beach as above Abd: Soft, NT, ND, +BS Continue Pantoprazole 40 mg BID, but will switch to PO today Strongly encourage inpatient or outpatient rehab for alcohol abuse Subjective Patient denies any current issues with nausea, vomiting, abdominal pain. no bowel movements since yesterday. no further melena. s/p EGD 12/19/23 with sage ordonez tear with stigmata of bleeding. clips placed. he is tolerating liquids but has only had these for breakfast. hgb 11.1 today. Review of Systems Review of Systems: All systems reviewed & are unremarkable except as noted in HPI & below Physical Exam Constitutional: WD/WN, vitals as above Respiratory: normal respiratory effort, lungs clear to auscultation Cardiovascular: RRR, no murmur, no edema Gastrointestinal (Abdomen): normal bowel sounds, soft, nontender, no hepatosplenomegaly Psychiatric: Orientation: alert and oriented x 3 Results & Data Results & Data Vital Signs (Past 12 Hours) Vital Signs Temp Pulse Resp BP Pulse Ox O2 Del Method 12/20/23 11:39 98.1 F 12/20/23 11:34 123 H 18 95 12/20/23 11:34 117/78 12/20/23 11:32 122 H 23 94 Room Air 12/20/23 11:32 98/81 L 12/20/23 11:01 95 12/20/23 10:00 111 H 16 12/20/23 09:00 120 H 24 12/20/23 08:02 98.6 F 12/20/23 08:00 111 H 37 H 93 Room Air 12/20/23 07:54 109/73 12/20/23 07:54 111 H 33 H 95 12/20/23 07:00 108 H 16 93 12/20/23 00:52 98.3 F 12/20/23 00:00 119/78 12/20/23 00:00 110 H 13 95 Coding Level of Care Code 13729 SUB INP/OBS CARE Diagnoses Alcohol use Z78.9 Gastrointestinal hemorrhage with melena K92.2 Coffee ground emesis K92.0
[2023-12-20 16:21] LABS: Hematocrit (blood only) 30.9 % (42.0-52.0); Hemoglobin 10.5 g/dl (14.0-18.0)
[2023-12-20] MEDS: PANTOprazole 40 MG TAB PO SCH (20:29)
[2023-12-21] MEDS: LORazepam 2 MG in SYRINGE 1 ML IV PRN (03:54)
[2023-12-21 06:18] LABS: Hematocrit (blood only) 29.6 % (42.0-52.0); Mean Corpuscular Hemoglobin 32.2 pg (25.0-34.0); Mean Corpuscular Hgb Conc 33.8 g/dL (32.0-36.0); Mean Corpuscular Volume 95.2 fL (80.0-100.0); Mean Platelet Volume 12.8 fL (9.4-12.4); Platelet Count 113 K/uL (130-400); RDW Coefficient of Variation 13.2 % (11.5-14.5); RDW Standard Deviation 45.5 fL (36.4-46.3); Red Blood Count 3.11 M/uL (4.70-6.10); White Blood Count 5.34 K/ul (4.8-10.8)
[2023-12-21 07:03] LABS: Folate (Folic Acid),Ser orPlas 7.62 ng/ml (>5.38)
[2023-12-21 08:23] LABS: Albumin Globulin Ratio 1.5 (0.9-2); Albumin Level 3.1 gm/dl (3.4-5.0); BUN Creatinine Ratio 15.5 (10-20); Bilirubin,Total 0.6 mg/dl (0.2-1.0); Creatinine Clr Calc Pharmacy 189.5 ml/min; Est GFR (African American) 149.9 ml/min; Est GFR (Non-African American) 129.3 ml/min; Globulin 2.1 gm/dl (2.5-4.0); Magnesium 1.8 mg/dl (1.7-2.4); Phosphorus 3.1 mg/dl (2.5-4.9); Potassium 3.9 mmol/L (3.5-5.1); Total Protein 5.2 gm/dl (6.0-8.3)
[2023-12-21 08:43] LABS: Ferritin 188.2 ng/ml (8-388)
[2023-12-21] MEDS: IRON SUCROSE 200 MG in 0.9 % SODIUM CHLORIDE 100 ML IV ONE (11:30)
--- NOTE | 2023-12-21 13:28 | Discharge Summary ---
Discharge Summary Date of Service December 21, 2023 Notes For Next Care Provider Please ensure stability of pt's H/H. Hgb has been stable at 10-11 at time of discharge. Please ensure follow up with gastroenterology Encourage alcohol cessation Medication Changes From Visit pantoprazole 40mg BID gabapentin taper for 6 days, starting at 300mg BID Admission HPI Per Admitting Provider This is a 38 y/o male with a history of mild persistent asthma who presented to the ED today with episode of bloody emesis and black stool. Pt reports that yesterday he was in his usual state of health. Last night, he woke up and coughed up some blood and white mucus, which he initially thought was due to his sinuses. However, early this morning, he woke up and had a large emesis of black clots followed by a black bowel movement that appearer similar to coffee grounds. He has some associated nausea initially but this has improved with Zofran. Stomach currently just feels unsettled. No further emesis or BM. He has a history of occasional heartburn for which he takes prn Tums, which usually help. He does not take NSAIDs routinely. Denies prior history of PUD or eso phagitis. He does drink ETOH almost every day, reports around 10 drinks per day. He will occasionally stop for a couple of days and denies having significant withdrawal symptoms when he does. His last drink was approximately 48 hours ago. He denies chest pain, palpitation, shortness of breath, syncope. Admission Exam Per Admitting Provider General: awake, alert, NAD HEENT: no scleral icturus, moist oral mucosa Neck: trachea midline Heart: regular but tachycardic in the 120s Lungs: CTA bilaterally, no W/R/R Abdomen: soft, NT, +BS Extremities: no pedal edema, distal pulses intact and equal Neurologic: Ox3, moving all extremities, no focal deficits, no confusion, no dysarthria, no tremor noted in hands at present Skin: no pallor or jaundice Principal Dx & Hospital Course #1 = Principal Diagnosis (1) GI bleed: (2) Mild persistent asthma without complication: (3) Alcohol use: Plan Mr. Quinn is a 38 year old male with a history of mild persistent asthma who presented to the ED 12/18 with an episode of bloody emesis and black stool at home. No prior history of PUD or GI bleed, no NSAID use. Does consume alcohol almost daily. EGD performed on 12/18 revealed Renae Mann tear with clear stigmata of bl eeding. Noted clots and bleeding in the esophagus, stomach and throughout the duodenum. Acute blood loss anemia Renae Mann tear Hgb 15 on admission now 10-11 Acute blood loss anemia in setting of GI bleed EGD on admission with Renae Mann tear, s/p 3 hemostatic clip -Noted clots and bleeding in the esophagus, stomach and throughout the duodenum -GI recommending pantoprazole 40mg BID -Diet advanced, on soft diet on discharge Discharged with pantoprazole 40mg BID PCP and GI follow up after discharge, please ensure H/H stability. Tachycardia likely multifactorial 2/2 GIB and alcohol withdrawal Resolved on discharge Alcohol withdrawal Last drink about 12/17 evening Was placed on Ativan IV protocol and Librium taper once taking po Thiamine, folic acid daily Discussed alcohol cessation, CM provided pt with resources for alcohol cessation Discharged with gabapentin 300mg BID taper over 6 days Pt stating at time of discharge, complete cessation might be an issue. Considering social drinking. PCP followup Mild persistent asthma without complication Chronic, stable Continue outpatient regimen Discharge Exam General: Alert, oriented. No acute distress Skin: No noted rashes or bruises Psych: pensive mood and affect Neuro: No gross deficits HEENT: NC/AT Chest: Nontender to palpation. CV: RRR Resp: Breath sounds clear bilaterally, no increased effort of breathing. Abdomen: Soft, nontender, nondistended. Extremities: No edema in lower extremities bilaterally. Updated Medication List Medication Instructions Recorded Confirmed Type budesonide 0.5 mg/2 mL suspension 0.5 mg inhalation AMP 12/19/23 12/19/23 History for nebulization fluticasone furoate 200 1 inh inhalation QA 12/19/23 12/19/23 History mcg-vilanterol 25 mcg/dose inhalation powder (Breo Ellipta) levocetirizine 5 mg tablet 5 mg PO QPM 12/19/23 12/19/23 History mometasone 50 mcg/actuation nasal 2 spray intranasal Q[facility] 12/19/23 12/19/23 History spray montelukast 10 mg tablet 10 mg PO QPM 12/19/23 12/19/23 History gabapentin 100 mg capsule See Rx Instructions .Route 12/21/23 Rx .COMPLEX #24 caps pantoprazole 40 mg tablet,delayed 40 mg PO BID #60 tabs 12/21/23 Rx release Hospital Stay Data Consultations 12/19/23 11:13 ED Decision to Admit Stat 12/19/23 12:14 Consult Gastroenterology Routine Procedures Performed Operation Date: 12/19/23 10:40 Actual Procedures p Esophagogastroduodenoscopy hemostasis - Fady Garcia Case, DO Diagnostic Imagining Performed 12/19/23 08:44 CT abd pelvis IV con only Stat Abdomen/Pelvis CT 12/19/23 08:[address] WITH IV CONTRAST CT DOSE: 831.12 mGy.cm HISTORY: Acute epigastric abdominal pain epigastric pain gib etoh ro pancreatitis TECHNIQUE: Multiaxial CT images of the abdomen and pelvis were performed following the IV administration of 94 cc of Optiray, A dose lowering technique was utilized adhering to the principles of ALARA. COMPARISON STUDY: None. FINDINGS: Clear lung bases. No free air. Unremarkable spleen, pancreas, gallbladder and adrenal glands. Hepatic steatosis, most pronounced in the left hepatic lobe. Patency of the hepatic and portal veins. Unremarkable kidneys. Prostatomegaly. Pelvic base and calcifications. Partial distention of the urinary bladder. Aorta and IVC are unremarkable. No lymphadenopathy. Small hiatal hernia with mild distal esophageal wall thickening with increased distal esophageal wall thickening. The stomach is distended and debris-filled suggestive of a recent meal. No bowel obstruction or bowel wall thickening. The appendix measures up to 7 mm and appears to be noninflamed. No acute fracture. Unremarkable soft tissues. IMPRESSION: 1. Small hiatal hernia with findings suspicious for a distal esophagitis. Findings could be correlated with endoscopy. 2. No CT evidence of acute pancreatitis. 3. Hepatic steatosis. ACT 112: Negative or not required by law. The above report was generated using voice recognition software. It may contain grammatical, syntax or spelling errors. Electronically signed by: Junior Nugent M.D. 12/19/2023 10:05 AM Discharge Instructions Given to Patient (Per Discharging Provider) Mr. Quinn, You were admitted with concerning bleeding in your GI system. You were seen by the engraver set up operator and they recommended a procedure called an EGD which you had. It was noted that you had blood with clots in your esophagus, stomach and duodenum. You had a clip placed. Gastroenterology is recommending that you stop drinking alcohol in an effort to prevent this from happening again. Consider the resources given to you by Case Management. We are discharging you home with a gabapentin taper to help with withdrawal from the alcohol use. Please take it as prescribed. You were on a similar medication while here. We are discharging you home with pantoprazole 40mg twice a day to help with the bleeding as recommended by gastroenterology. Please take as prescribed. Please keep close follow up with your primary care provider after discharge. Please also keep close follow up with your engraver set up operator after discharge. Please do not hesitate to come back to the emergency room if your symptoms worsen or return. It was a pleasure taking care of you while you were here. Total Time Total Time Spent Total Time Spent (In Minutes): > 30 minutes
--- NOTE | 2023-12-21 13:41 | Electrocardiogram Report ---
Test Reason : Blood Pressure : / mmHG Vent. Rate : 116 BPM Atrial Rate : 116 BPM P-R Int : 126 ms QRS Dur : 086 ms QT Int : 326 ms P-R-T Axes : 073 062 069 degrees QTc Int : 453 ms Sinus tachycardia Cannot rule out Anterior infarct , age undetermined Abnormal ECG No previous ECGs available Confirmed by Ronald Lezama ([id number]) on 12/21/2023 1:41:00 PM Referred By: Confirmed By:Ronald Lezama
[2023-12-22] MEDS ORDERED: chlordiazePOXIDE HCl 25 MG CAP PO SCH (11:30)
== END 2023-12-21 15:09 | disposition home or self-care (01) | DRG 369 ==
LOC: ED 08:10 → EDINP 11:31 → SUATTDRO 11:31 → EDINP 13:39 → 1E 18:32 → 4W 12-20 23:26